=== PATIENT | male | born 1935 | race Caucasian/White ===

== ENCOUNTER → 2020-03-26 17:32 | Outpatient (CLI) | payer MEDICARE, OTHER, SELFPAY ==
--- NOTE | ~2020-03-26 | XR_ITS ---
EXAMINATION: XR lumbar spine 6V w bending EXAM DATE: 03/26/2020 18:12 INDICATION: Low back. Sciatica. TECHNIQUE: Lumber spine frontal, lateral, bilateral oblique projections. Coned down frontal and lat eral L5-S1 lumbar projections for interpretation. Additional lateral flexion and lateral extension p rojections obtained. There are no prior studies for comparison. FINDINGS: There is mild lumbar levoscoliosis. Moderate to severe loss of the L4-5 and L5-S1 disc heig hts, moderate at L1-2 and L2-3, mild to moderate at L3-4. There is 2-3 mm retrolisthesis L1 on L2, L2 on L3 and L3 on L4. Small lumbar endplate osteophytes. There is moderate to severe lower lumbar face t arthropathy, less at the thoracolumbar levels. There is moderate scattered abdominal aortic arterio sclerotic disease. Sacrum, sacroiliac joints, sacral arcuate lines are intact. There is no spondylol ysis. IMPRESSION: 1. Moderate to severe lower lumbar spondylosis. 2. Mild levoscoliosis. Reviewed, dictated and finalized at location A.
--- NOTE | ~2020-03-26 | XR_ITS ---
EXAMINATION: XR_[id number]_CR DATE: 03/26/2020 18:13 INDICATION: Pleurodynia. Left anterior inferior rib pain. TECHNIQUE: A frontal view of the chest and 3 views of the left ribs were obtained. COMPARISON: Chest 2 views 06/16/2016 FINDINGS: There is mild atelectasis in right lower lung zone and left mid and lower lung zones. No pl eural effusion or pneumothorax. The heart size is normal. There are surgical clips in left supraclavi cular region. There is a healing versus healed fracture of left fifth rib with callus. IMPRESSION: 1. Healing versus healed fracture of left fifth rib with callus. No acute rib fracture. 2. Mild atelectasis in right lower lung zone and left mid and lower lung zones. Reviewed, dictated and finalized at location A. IMPRESSION: 1. Healing versus healed fracture of left fifth rib with callus. No acute rib f racture. 2. Mild atelectasis in right lower lung zone and left mid and lower lung zones.
--- NOTE | ~2020-03-26 | XR_ITS ---
EXAMINATION: XR hip BI 2V w AP pelvis EXAM DATE: 03/26/2020 18:11 INDICATION: Sciatica. Low back pain. Left hip pain. TECHNIQUE: Each hip imaged independently (separate right and also left hip) crosstable lateral and ' frog-leg' and frontal projections for interpretation. Frontal projection pelvis. There is no prior study for comparison. FINDINGS: There is an intact right hip arthroplasty. There is moderate left hip primary osteoarthriti s, without evidence of avascular necrosis. There are no acute fractures or dislocations identified. There is no subcutaneous gas. Calcifications in the pelvis are believed to be phleboliths. Sacrum, sacroiliac joints, sacral arcuate lines are intact. Lower lumbar spondylosis. IMPRESSION: 1. Moderate left hip osteoarthritis. 2. Intact right hip arthroplasty. Reviewed, dictated and finalized at location A.
== END ==
PROVIDERS: PCP Internal Medicine; Visit Provider Internal Medicine
DX: M54.30 Sciatica, unspecified side (principal); M47.896 Other spondylosis, lumbar region; R91.8 Other nonspecific abnormal finding of lung field; M16.12 Unilateral primary osteoarthritis, left hip
CPT/HCPCS: 71101; 72114; 73521

== ENCOUNTER 2020-05-03 12:31 | Outpatient (CLI) | payer MEDICARE, OTHER, SELFPAY ==
--- NOTE | ~2020-05-03 | XR_ITS ---
EXAMINATION: XR lg joint inject/asp w image DATE: 05/03/2020 13:34 INDICATION: Unilateral primary osteoarthritis of the left hip TECHNIQUE: A time-out was performed to verify the patient's name, date of , and procedure to b e performed. The procedure including the risks, benefits, and alternatives was discussed with the pat ient. Risks discussed included bleeding and infection. The patient understood the risks and agreed to proceed. The skin overlying the left hip joint was prepped and draped in usual sterile fashion. An esthetic was administered with 1% lidocaine subcutaneously. A 22 G needle was advanced under fluoros copic guidance into the joint. Injection of 0.4 mL of Omnipaque 240 confirmed intra-articular positi on of the needle. Subsequently, injectate consisting of 7 mL of a 5:2 mixture of 1% lidocaine:10 mg/ mL Kenalog for a total dosage of 20 mg Kenalog was instilled. Washout of contrast was seen confirming intra-articular administration. The needle was removed and the entry site was cleaned and dressed. There were no immediate complications. Fluoroscopy exposure time was 0.1 minutes. The total number of images was 2. FINDINGS: Real-time fluoroscopy demonstrates the needle in the left hip joint. Patient's pain prior t o procedure:02/05. Patient's pain following the procedure: 08/08. IMPRESSION: 1. Left hip joint injection of local anesthetic and steroid with decrease in the patient's presenting pain. Reviewed, dictated and finalized at location A. MACHINE OPERATOR IMPRESSION: 1. Left hip joint injection of local anesthetic and steroid with decrease in th e patient's presenting pain.
== END 2020-05-03 12:32 | disposition home or self-care (01) ==
LOC: ANHIMG 12:34
PROVIDERS: PCP Internal Medicine; Visit Provider Orthopaedic Surgery
DX: M16.12 Unilateral primary osteoarthritis, left hip (principal)
CPT/HCPCS: 20610; 77002; J3301; Q9966

== ENCOUNTER 2022-06-04 10:48 | Outpatient (CLI) | payer MEDICARE, OTHER, SELFPAY ==
--- NOTE | ~2022-06-04 | NM_ITS ---
EXAMINATION: NM michael stress w perfusion DATE: 06/04/2022 12:53 INDICATION: Fatigue. Hyperlipidemia. TECHNIQUE: Rest images were obtained following intravenous administration of 9.8 mCi Tc99m tetrofosmi n (Myoview). The patient was infused intravenously with Lexiscan (Regadenoson). Then, 31.77 mCi Tc99m tetrofosmin (Myoview) was administered intravenously, and stress images were obtained. Data was blake nstructed into short axis and horizontal and vertical long axis SPECT images. Gated SPECT images were also obtained. COMPARISON: None. FINDINGS: There is an enlarged artifactual perfusion defect along a significant portion of the inferi or third of the heart on both the supine rest and stress images which largely reverses on the post st ress images obtained in prone position. The rotating source images suggests this may be due to elevat ion of the right hemidiaphragm. There is some residual mild decreased perfusion at the basilar inferi or septal, inferior and inferolateral segments equivocal for residual attenuation artifact versus inf arct. No perfusion defects on the post stress imaging reversible on the rest imaging to suggest ische [place]. There is normal left ventricular chamber size, wall motion and ejection fraction. Left ventricu lar ejection fraction measures 55%. IMPRESSION: 1. Large region of likely attenuation artifact along the inferior half of the heart on supine stress and rest images likely related to what appears to be an elevated right hemidiaphragm. There is largel y normalizes on post stress imaging performed in the prone position. Persistent decreased activity al rakesh the basilar inferolateral, inferior and inferolateral segments on prone imaging could represent r esidual attenuation artifact versus infarct. No evident reversible ischemia. 2. Left ventricular ejection fraction measuring 55%. Reviewed, dictated and finalized at location A. Y TRUCK TECHNICIAN IMPRESSION: 1. Large region of likely attenuation artifact along the inferior half of the h eart on supine stress and rest images likely related to what appears to be an e levated right hemidiaphragm. There is largely normalizes on post stress imaging performed in the prone position. Persistent decreased activity along the basil ar inferolateral, inferior and inferolateral segments on prone imaging could re present residual attenuation artifact versus infarct. No evident reversible isc hemia. 2. Left ventricular ejection fraction measuring 55%.
--- NOTE | 2022-06-04 11:05 | EST_ITS ---
Patient Info Name: Chris Bishop Age: 87 years : 1935 Gender: Male Ht: 69 in Wt: 205 lbs BSA: 2.15 m2 HR: 59 bpm BP: 145 / 97 mmHg Heart Rhythm: Sinus Rhythm Exam Date: 06/04/2022 11:45 AM Exam Location: [facility] Stress Patient Status: Outpatient Admit Date: 06/04/2022 Staff Ordering Physician: Krish Foley MD Attending Provider: Krish Foley MD Exercise Technologist: Celia Servin CT Exercise Physician: Song Patel DO Exam Type: CA stress michael w NM Study Info Indications I11.9 - Hypertensive heart disease without heart failure A regadenoson stress test was performed. Summary 1. 1. Negative lexiscan stress test for ischemic ST changes by ECG criteria. 2. 2. Baseline hypertension. 3. 3. Nuclear scan to follow and will be reported separately. Please correlate with it. 4. 4. Patient informed of the above results. Protocol: Lexiscan Stress ECG Details Stage: REST Duration (min): 0 min : 54 sec HR (bpm): 57 SBP (mmHg): 145 DBP (mmHg): 97 Stage: REST Duration (min): 7 min : 57 sec HR (bpm): 61 SBP (mmHg): 145 DBP (mmHg): 97 Stage: STAGE 1 Duration (min): 1 min : 0 sec HR (bpm): 66 SBP (mmHg): 166 DBP (mmHg): 106 Stage: RECOVERY Duration (min): 1 min : 0 sec HR (bpm): 75 SBP (mmHg): 166 DBP (mmHg): 106 Stage: RECOVERY Duration (min): 2 min : 0 sec HR (bpm): 71 SBP (mmHg): 166 DBP (mmHg): 106 Stage: RECOVERY Duration (min): 3 min : 0 sec HR (bpm): 71 SBP (mmHg): 166 DBP (mmHg): 106 Stage: RECOVERY Duration (min): 3 min : 11 sec HR (bpm): 68 SBP (mmHg): 174 DBP (mmHg): 105 Rest HR: 61 bpm Peak HR: 79 bpm Rest Sys BP: 145 mmHg Peak Sys BP: 174 mmHg Max Pred HR: 134 bpm % Max Pred HR: 59 % Target HR: 114 bpm Max RPP: 13,746 bpm*mmHg Termination Reason: Completed protocol Cardiac Symptoms: Shortness of breath Total Time: 1 min : 0 sec Rest Mabry BP: 97 mmHg Peak Mabry BP: 105 mmHg Total Dose: 0.4 mg Resting ECG Sinus rhythm, cannot r/o septal infarct, age indeterminate. Stress ECG No ST changes. Arrhythmias None. Report Signatures
== END 2022-06-04 10:49 | disposition home or self-care (01) ==
LOC: ANHCARD 10:51
PROVIDERS: PCP Family Medicine; Visit Provider Family Medicine
DX: R53.83 Other fatigue (principal); E78.5 Hyperlipidemia, unspecified; I11.9 Hypertensive heart disease without heart failure; I20.9 Angina pectoris, unspecified
CPT/HCPCS: 78452; 93017; A9502; J2785

== ENCOUNTER 2022-06-25 08:21 | Outpatient (CLI) | payer MEDICARE, OTHER, SELFPAY ==
--- NOTE | 2022-06-25 08:48 | ECHO_ITS ---
Patient Info Name: Chris Bishop Age: 87 years : 1935 Gender: Male Ht: 70 in Wt: 210 lbs BSA: 2.19 m2 HR: 59 bpm BP: 154 / 88 mmHg Technical Quality: Good Exam Date: 06/25/2022 9:13 AM Exam Location: [facility] Patient Status: Outpatient Admit Date: 06/25/2022 Staff Ordering Physician: oSng Patel DO Pilot Safety Inspector: Uma Rico RDCS Attending Provider: Song Patel DO Referring Physician: Jorge DINH; Exam Type: CA echo doppler color flow Study Info Indications R06.09 - Other forms of dyspnea Complete two-dimensional, color flow and Doppler transthoracic echocardiogram is performed. Summary 1. Complete two-dimensional, color flow and Doppler transthoracic echocardiogram is performed. 2. Left ventricular chamber dimension is normal. 3. Left ventricular systolic function is normal, estimated at 60-65%. 4. The left ventricular diastolic function is grade I diastolic dysfunction. 5. E/e' 8 is minimally elevated. 6. There is mild aortic valve sclerosis. 7. There is mild to moderate aortic valve regurgitation. 8. The mitral valve has mildly calcified annulus. 9. The aortic root size at the sinus of Valsalva is moderately dilated at 4.5 cm. 10. The prox ascending aorta size is mildly dilated at 4.3 cm. Left Ventricle E/e' 8 is minimally elevated. Left ventricular chamber dimension is normal. Left ventricular systolic function is normal, estimated at 60-65%. The left ventricular diastolic function is grade I diastolic dysfunction. Right Ventricle Right ventricular systolic function is normal and with normal TAPSE 2.2 cm. Right ventricular chamber dimension is normal. Left Atria Left atrial chamber dimension is normal. Right Atria Right atrial chamber dimension is normal. Aortic Valve The aortic valve is trileaflet. There is mild aortic valve sclerosis. There is no aortic valve stenosis. There is mild to moderate aortic valve regurgitation. Pulmonic Valve There is no pulmonic regurgitation. Mitral Valve The mitral valve has mildly calcified annulus. There is no mitral valve stenosis. There is no mitral valve regurgitation. Tricuspid Valve There is no tricuspid valve regurgitation. Pericardium/Pleural There is no pericardial effusion. Inferior Vena Cava Normal inferior vena cava with >50% collapse upon inspiration consistent with normal right atrial pressure, 5 mmHg. Aorta The aortic root size at the sinus of Valsalva is moderately dilated at 4.5 cm. The prox ascending aorta size is mildly dilated at 4.3 cm. Left Ventricular Outflow Tract Name Value Normal LVOT 2D LVOT Diameter 2.0 cm LVOT Doppler LVOT Peak Gradient 3 mmHg LVOT Mean Gradient 2 mmHg LVOT VTI 18 cm LVOT VTI/AV VTI Ratio 0.9 LVOT Stroke Volume 57 ml LVOT CO 3.8 l/min LVOT CI 1.7 l/min/m2 Mitral Valve
== END 2022-06-25 08:22 | disposition home or self-care (01) ==
LOC: ANHCARD 08:22
PROVIDERS: PCP Family Medicine; Visit Provider Internal Medicine Cardiovascular Disease
DX: R06.09 Other forms of dyspnea (principal); I35.1 Nonrheumatic aortic (valve) insufficiency
CPT/HCPCS: 93306

== ENCOUNTER 2022-09-08 11:51 | Outpatient (CLI) | payer MEDICARE, OTHER, SELFPAY ==
[2022-09-08 13:27] LABS: Basophils Percent Auto 0.4 % (0.2-1.2); Eosinophils Absolute Auto 0.3 K/mm3 (0-0.3); Eosinophils Percent Auto 3.4 % (0-4.4); Hematocrit 43.5 % (42.0-52.0); Hemoglobin 14.9 g/dL (14.0-18.0); Immature Granulocyte Absolute 0.02 K/mm3 (0.00-0.031); Immature Granulocyte Percent A 0.3 % (0-0.5); Immature Platelet Fraction Pct 3.3 % (0.9-11.2); Lymphocytes Absolute Auto 1.78 K/mm3 (0.9-3.2); Lymphocytes Percent Auto 24.1 % (18.3-44.2); Mean Corpuscular HGB Conc 34.3 g/dl (32-36); Mean Corpuscular Hemoglobin 34.9 pg (26-34); Mean Corpuscular Volume 101.9 fl (80-100); Mean Platelet Volume 11.1 fl (7.4-10.4); Monocytes Absolute Auto 0.6 K/mm3 (0.1-0.6); Neutrophils Absolute Auto 4.7 K/mm3 (1.3-6.7); Neutrophils Percent Auto 63.8 % (45.5-73.1); Platelet Count Result 101 k/mm3 (150-375); Red Blood Count 4.27 M/mm3 (4.6-6.20); Red Cell Distribution Width 13.2 % (11.5-14.5); White Blood Count 7.4 K/mm3 (4.5-10.0)
[2022-09-08 13:32] LABS: Urine Cotinine NEGATIVE
[2022-09-08 13:44] LABS: Anion Gap 5 mmol/L (8-16); Blood Urea Nitrogen 46 mg/dL (9-20); Calcium 9.1 mg/dL (8.4-10.2); Carbon Dioxide 31 mmol/L (22-30); Chloride 98 mmol/L (98-107); Estimated Glomerular Filt Rate 38; Glucose 99 mg/dL (65-110); Potassium 3.7 mmol/L (3.4-5.0); Sodium 134 mmol/L (137-145)
[2022-09-08 13:50] LABS: Albumin Level 4.7 g/dL (3.5-5.1)
[2022-09-08 14:30] LABS: Hemoglobin A1C 5.1 % (<5.7)
== END 2022-09-08 11:52 | disposition home or self-care (01) ==
LOC: ANHSURGERY 11:57
PROVIDERS: Anesthesiology; PCP Family Medicine; Visit Provider Orthopaedic Surgery
DX: M17.12 Unilateral primary osteoarthritis, left knee (principal); Z79.899 Other long term (current) drug therapy; Z01.818 Encounter for other preprocedural examination
CPT/HCPCS: 80048; 80307; 82040; 83036; 85025; 85055; 87081

== ENCOUNTER 2022-09-30 01:01 | Day surgery (SDC) | payer MEDICARE, OTHER, SELFPAY ==
--- NOTE | 2022-09-08 11:55 | PC.NURSE ---
PRE-OP INSTRUCTIONS, PLEASE READ CAREFULLY Report to the Outpatient Waiting Room, entrance under the green pavilion located off [facility], at time _0830_ on date _09/30/22_. Planned Procedure Time: _1030_. PACK A SMALL OVERNIGHT BAG AND LEAVE IN THE CAR ALONG WITH YOUR WALKER Time changes happen often and if your time is changed the preop area will call you the afternoon before. - You and your visitor will be asked to self-screen and do not enter if you have any COVID symptoms. - Only one visitor is requested with a max of two and NO children visitors are allowed at this time. - The patient visitor may be requested to leave or wait in car when not with patient due to distancing restrictions. - A mask is optional within the hospital at this time. -VISITING HOURS 8AM-8PM Patients may have clear liquids (water, carbonated beverages, clear teas, apple juice) until 3 hours prior to surgery (0730 AM) with a maximum of 20 ounces. - No food from midnight until time of surgery Take the following medications with a SIP of water the morning of surgery: _NEBIVOLOL (BYSTOLIC)_ DO NOT STOP ANY OF YOUR OTHER PRESCRIPTION MEDICATIONS PRIOR TO SURGERY ?EXCEPT THE FOLLOWING Medications to discontinue per DR. UMANA - _ASPIRIN 7 DAYS PRIOR TO SURGERY, Date to take last dose 09/22/22_ Medications to discontinue per ANESTHESIA - _VITAMINS AND SUPPLEMENTS 3 DAYS PRIOR TO SURGERY, Date to take last dose 09/26/22_ Please no make-up, nail bengali, hairspray, perfume, deodorant, or body powder the day of surgery. No jewelry (including any body piercings) or valuables the day of surgery, leave them at home. Please take a shower or bath the night before, or the morning of, surgery with an antibacterial soap. Wear comfortable, loose fitting clothing. - Jewelry must be removed prior to entering the operating room. Rings and piercings that are not removed may be cut off. - The hospital will not accept responsibility for valuables. - Please leave all valuables, including medications, at home the day of surgery. If you are going home after surgery, a licensed steam train driver must drive you home. - NO public transportation without another adult if you receive anesthesia. - We recommend that an adult stay with you for 24 hours following discharge. - We also recommend that you do not drive, make important decision, drink alcoholic beverages, or take any drugs that were not prescribed by your health care provider for at least 24 hours after your discharge time. Follow any additional instructions given to you from your surgeon. TOTAL JOINT CLASS 09/10/22 @ 10AM, [facility] ENTRANCE 2 - LOWER LEVEL If you or anyone in your household have experienced Covid symptoms in the past week, please notify your surgeon or the nurse liaison at the phone number below for possible testing. Instructions given to _PATIENT & SPOUSE_and asked if any additional questions and then verbalized understanding. Patient advised to call surgeon office or pre surgery nurse liaison [phone] if any additional questions.
[2022-09-08 12:24] VITALS: BP 116/54; PULSE 56; RESP 20; TEMP 36.6; O2SAT 97; BMI 31.4
[2022-09-30] VITALS (11 sets, daily range): BP systolic 112–151; BP diastolic 58–98; PULSE 56–92; RESP 13–18; TEMP 36–37.1; O2SAT 92–99
--- NOTE | ~2022-09-30 | XR_ITS ---
EXAMINATION: [id number] DATE: 09/30/2022 14:39 INDICATION: Left shoulder arthroplasty. Postop. TECHNIQUE: 2 views of left knee were obtained. COMPARISON: None. FINDINGS: There is a total left knee arthroplasty without patellar resurfacing in near-anatomic align ment. No fracture. There is gas in the knee joint and soft tissues, consistent with recent surgery. IMPRESSION: 1. Total left knee arthroplasty in near-anatomic alignment. Reviewed, dictated and finalized at location A.
--- NOTE | 2022-09-30 08:52 | WPDANESEPPF ---
Anes - Initial Pre Proc Eval Procedure: Operation Date: 09/30/22 10:30 Proposed Procedures p Left Total Knee Arthroplasty - Augusto Lowe MD Date/Time: 09/30/22 08:52 Surgeon: Augusto Lowe MD Pre Op Diagnosis: primary OA left knee Patient Data Age: 87 Gender: M Height: 1.73 m Weight: 93.7 kg Last Vital Signs Temp 36.6 C 09/08/22 12:24 Pulse 56 L 09/08/22 12:24 Resp 20 09/08/22 12:24 BP 116/54 L 09/08/22 12:24 Pulse Ox 97 09/08/22 12:24 O2 Del Method Room Air 09/08/22 12:24 Allergies Allergy/AdvReac Type Severity Reaction Status Date / Time iron Allergy Unknown unknown- Verified 09/15/22 14:20 A CHILD Home Medications Medication Instructions Recorded Confirmed Type folic acid-vit B6-vit B12 2.5 1 tablet PO DAILY #90 tabs 05/01/20 09/08/22 Rx mg-25 mg-1 mg tablet valsartan 160 0.5 tablet PO DAILY #45 tabs 07/30/20 09/08/22 Rx mg-hydrochlorothiazide 25 mg tablet (Diovan HCT) aspirin 81 mg tablet,delayed 81 mg PO DAILY 02/04/22 09/08/22 History release (Adult Low Dose Aspirin) allopurinol 300 mg tablet See Rx Instructions .Route 02/20/22 09/08/22 Rx .COMPLEX #90 tabs pantoprazole 40 mg tablet,delayed See Rx Instructions .Route 02/25/22 09/08/22 Rx release .COMPLEX #90 tabs ascorbate calcium (vitamin C) 500 500 mg PO DAILY 04/23/22 09/08/22 History mg tablet cholecalciferol (vitamin D3) 50 50 mcg PO DAILY 04/23/22 09/08/22 History mcg (2,000 unit) capsule niacin 1,000 mg tablet,extended See Rx Instructions .Route 04/23/22 09/08/22 Rx release 24 hr .COMPLEX #90 tabs vitamin E 600 unit capsule 600 unit PO DAILY 04/23/22 09/08/22 History celecoxib 200 mg capsule 200 mg PO DAILY #90 caps 05/01/22 09/08/22 Rx omega-3 acid ethyl esters 1 gram 2 cap PO BID #360 caps 05/14/22 09/08/22 Rx capsule (Lovaza) finasteride 5 mg tablet 5 mg PO DAILY 09/08/22 09/08/22 History glucosamine 750 fp-vezcesppwng-xuj 1 tablet PO DAILY 09/08/22 09/08/22 History no1 644 mg-C 30 mg-ruddy 1 mg tablet (Osteo Bi-Flex Triple Strength) lovastatin 40 mg tablet 40 mg PO DAILY #90 tabs 09/08/22 09/08/22 Rx mirabegron 25 mg tablet,extended 25 mg PO DAILY 09/08/22 09/08/22 History release 24 hr (Myrbetriq) nebivolol 10 mg tablet (Bystolic) 10 mg PO DAILY #90 tabs 09/08/22 09/08/22 Rx perindopril erbumine 4 mg tablet 4 mg PO DAILY #90 tabs 09/08/22 09/08/22 Rx Other studies: Exam Date: ? ? 06/25/2022 9:13 AM Exam Location: ? ? [facility] Patient Status: ? ? Outpatient Admit Date: ? ? 06/25/2022 Staff Ordering Physician: ? ? Song Patel. DO Utility Porter: ? ? Uma Rico RDCS Attending Provider: ? ? Song Patel. DO Referring Physician: ? ? Jorge DINH; Exam Type: ? ? CA echo doppler color flow Study Info Indications ? ? R06.09 - Other forms of dyspnea Complete two-dimensional, color flow and Doppler transthoracic echocardiogram is performed. Account #: ? ? [id number] Summary ? 1. Complete two-dimensional, color flow and Doppler transthoracic echocardiogram is performed. ? 2. Left ventricular chamber dimension is normal. ? 3. Left ventricular systolic function is normal, estimated at 60-65%. ? 4. The left ventricular diastolic function is grade I diastolic dysfunction. ? 5. E/e' 8 is minimally elevated. ? 6. There is mild aortic valve sclerosis. ? 7. There is mild to moderate aortic valve regurgitation. ? 8. The mitral valve has mildly calcified annulus. ? 9. The aortic root size at the sinus of Valsalva is moderately dilated at 4.5 cm. ? 10. The prox ascending aorta size is mildly dilated at 4.3 cm. Echo/MUGA:: 12/28/22 Echo: EF 60-65%, grade I diastolic dysfunction (E/e' 8), mild-mod AI, aortic root 4.5 cm and asc aorta 4.3 cm. Electrophysiology:: 06/09/22 EKG: Sinus rhythm, borderline AV conduction delay, LAFB. 08/01/20 EKG: Sinus rhythm, LAFB. Stress Tests:: 06/04/22 Lexiscan myoview: Possible inferolateral inf
[2022-09-30] MEDS: ACETAMINOPHEN 500 MG TABLET 1000 MG PO (09:15)
[2022-09-30] MEDS: LACTATED RINGERS 1,000 ML 30 ML IV CONT ×2 (09:44→14:26)
[2022-09-30] MEDS: TRANEXAMIC ACID 1,000MG/ISO100 1,000 MG/100 ML BAG 200 MG IVPB (09:44)
--- NOTE | 2022-09-30 11:19 | WPDHPUPDATE1 ---
History and Physical Update Update Date/Time: 09/30/22 11:19 History and Physical has been reviewed, including an updated exam of the patient. There are NO changes in the patient's condition. Risks, benefits, and alternatives have been discussed and questions answered. Patient agrees to proceed with procedure.
--- NOTE | 2022-09-30 12:02 | WPDANESPNB ---
Anes - Peripheral Nerve Block Date/Time: 09/30/22 12:02 I have discussed with the patient/family/POA the placement of a peripheral nerve block for post-operative pain management, including associated risks, benefits, complications, and side effects. Alternative methods of post-operative analgesia were detailed. Questions were solicited and answers provided to the satisfaction of the patient/family/POA. Time-Out: A pre-procedural Time-Out was completed immediately before starting the procedure and confirmed: Patient Identification, Site, Procedure, Patient Position and the Availability of Requisite Equipment. Clinical Indications: Acute post-operative pain management requested by the operative surgeon. Nerve Block Insertion Note Anes-nerve block: adductor canal left Patient position: supine Skin prep: chlorhexidine Needle: 22 gauge, stimulating, insulated echogenic needle. Needle length: 80 mm Technique: ultrasound Technique comment: in plane Injectate: bupivacaine 0.25% with epi 5 mcg/ml (30cc) Observations: tolerated well Complications: none Procedure start time:: 1150 Procedure end time:: 1155
[2022-09-30] MEDS: ceFAZolin 2 GM/D5W 50 ML 2 GM/50 ML BAG IVPB ×2 (12:21→20:35)
[2022-09-30] MEDS: GENTAMICIN BONE CEMENT REFOBACIN 1 EACH TOPICAL (13:10)
--- NOTE | 2022-09-30 15:53 | ADMGEN ---
This patient, Chris Bishop, was admitted to Medical Room 250-01. Patient/family oriented to hospital policies and general routines including ID bracelet, bed and alarms, visiting hours, pain management, procedures, bathroom and other care routines, personal items, smoking policy, room service/diet, and visiting hours. Information on how to activate the Rapid Response Team has been discussed. Patient/Family are encouraged to report perceived risks to care and to ask questions if they do not understand what they are told or what they should do.
--- NOTE | 2022-09-30 16:03 | W.PM.PROC2 ---
Procedure Note - Detailed Date of Procedure 09/30/22 Pre-op Diagnosis primary OA left knee Post-op Diagnosis Same Procedure Performed Total knee arthroplasty, left Surgeon Augusto Lowe MD Anesthesia General and Regional (subsartorial block) Findings Satisfactory bone quality. Mild medial release. Popliteal release. Description of Procedure The patient was brought to the operating room. A general anesthetic was administered. The leg was prepped and draped in the usual sterile fashion. The limb was elevated and the tourniquet inflated to 300 mmHg. A longitudinal incision was created along the medial border of the patella and patellar tendon, and a trivector approach to the knee was performed. A mild medial release was taken. The knee was then flexed. The osteophytes were carefully removed. The intramedullary guide was placed in the femoral canal. The distal femoral resection was then taken with the oscillating saw. The collateral ligaments were carefully protected. The tibia was carefully exposed. The jig was applied, and the proximal tibia was resected according to preoperative plan. The knee was balanced in extension. Appropriate releases were taken where needed. The anterior cruciate ligament and meniscal remnants were removed. The posterior cruciate ligament was preserved. The patella was denervated, and peripatellar osteophytes removed. The femur was sized and rotation assessed using a combination of gap balancing, posterior referencing, and the AP axis. The 4 in 1 cutting block was used to finish the femoral cuts after equal gaps were assured. The osteophytes were carefully removed from the back of the knee. The knee was copiously irrigated with antibiotic solution periodically throughout the procedure. The meniscal remnants were removed. The spacer block was used to confirm equal flexion and extension gaps. No further releases were needed. The tibia was sized and broached. The bony surfaces were prepared for cementing with pulsatile lavage. The real tibia was cemented into position. The femur was press-fit. Excess cement was carefully removed. Patellar tracking was carefully assessed. Slight PCL release performed. Dilute sterile Betadine soak performed for three minutes. Copious irrigation then performed. The wound was closed with #1 Vicryl suture, #2, 2-0, and 3-0 barbed suture, followed by Steri-Strips. A sterile bulky dressing was applied. Meticulous hemostasis was maintained throughout the procedure, and the bipolar cautery device was used. The pain relieving mixture was injected into the periarticular tissues during the procedure. There were no complications. The patient was extubated and brought to the recovery room in stable condition after the application of sterile dressing with Jose bandage. Implants [place] Triathlon knee system, low profile cemented tibia size 6, press-fit cruciate retaining femoral component size 5 ,and an 9 mm cruciate retaining polyethylene insert. Estimated Blood Loss -50.0 Drains No Pathology None sent Complications No immediate complications Condition Stable Disposition PACU [facility] Billing Surgery - Charge Forward: Surgery Billing
[2022-09-30] MEDS: ASPIRIN 81 MG ENTERIC TABLET PO (17:26)
[2022-09-30] MEDS: allopurinoL 300 MG TABLET PO (17:26)
[2022-09-30] MEDS: PANTOPRAZOLE 40 MG TABLET PO (17:26)
[2022-09-30] MEDS: ONDANSETRON INJ 4 MG/2 ML VIAL IV PUSH (20:28)
[2022-09-30] MEDS: NIACIN SA 500 MG TABLET 1000 MG PO (20:40)
--- NOTE | 2022-09-30 21:55 | PM.IMCN ---
Assessment and Plan Assessment and plan (1) S/P total knee arthroplasty: Code(s): Z96.659 - Presence of unspecified artificial knee joint Status: Acute Assessment and Plan: Postop care per Dr. Lowe PT OT per ortho DVT prophylaxis per Dr. Lowe Pain management per Ortho (2) Mixed hyperlipidemia: Code(s): E78.2 - Mixed hyperlipidemia Status: Acute Assessment and Plan: His omega-3 is on hold. His lovastatin and niacin have been continued. (3) Hypertension: Code(s): I10 - Essential (primary) hypertension Status: Acute Assessment and Plan: His Diovan HCT has been continued. His perindopril has been continued. His Bystolic has been continued (4) BPH (benign prostatic hyperplasia): Code(s): N40.0 - Benign prostatic hyperplasia without lower urinary tract symptoms Status: Acute Assessment and Plan: His finasteride has been continued. Plan Thank you for this consultation this 87-year-old male patient. We will continue to comanage alongside you. In the event that he have any questions or concerns please feel free to reach out to the hospitalist group. HPI Data of Consult Consult date: 09/30/22 Requesting Physician: Augusto Lowe MD Primary Care Provider: Krish Foley MD Consult Narrative Narrative: Chris Bishop is a 87 year old male who has complaints of severe bilateral knee pain. The left is worse than the right. 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 The patient was having worse pain with standing and walking. The patient uses a cane and stating give him some relief. The patient stated he was quite athletic and rode motorcycles when he was younger. The patient cannot walk more than a block and now due to the discomfort. The discomfort has affected his quality of life. The patient underwent a total left knee arthroplasty per Dr. Jane person today. Please see operative report. Patient had general and regional anesthesia. The patient has no complaints at this time. When I assessed the patient was sitting up in the chair with his feet on a stool. The patient was admitted to orthopedic physician and the hospitalist group was consulted today on the date of service of 09/30/2022. Review of Systems Review of Systems: All systems reviewed & are unremarkable except as noted in HPI and below Constitutional: Constitutional: Reports as per HPI and Reports no additional constitutional complaints Eyes: Eyes: Reports as per HPI and Reports no additional eye complaints ENT: Reports system reviewed and no additional complaints, except as documented and Reports Normal hearing present Cardiovascular: Cardiovascular: Reports no additional cardiovascular complaints Respiratory: Respiratory: Reports no additional respiratory complaints and Reports no additional respiratory complaints Gastrointestinal: Gastrointestinal: Reports as per HPI and Reports no additional gastrointestinal complaints Musculoskeletal: Musculoskeletal: Reports no additional musculoskeletal complaints Integumentary/Breasts: Skin/Breast: Reports system reviewed and no additional complaints, except as docu and Reports as per HPI Neurologic: Reports system reviewed and no additional complaints, except as documented, Reports as per HPI and Reports Normal hearing present Psychiatric: Psychiatric: Reports no additional psychiatric complaints and Reports as per HPI Endocrine: Endocrine: Reports no additional endocrine complaints Hematologic/Lymphatic: Hematologic/Lymphatic: Reports no additional hematologic/lymphatic complaints Allergic/Immunologic: Allergic/Immunologic: Reports no additional allergic/immunologic complaints PMFSH Past Medical History Medical History (Updated 09/30/22 @ 22:11 by Fela Noel NP) Arthritis Arthritis, 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
[2022-10-01 01:17] VITALS: BP 112/61; PULSE 64; RESP 16; TEMP 36.6; O2SAT 93
[2022-10-01] MEDS: traMADol HCL (*CRX) 50 MG TABLET PO (03:18)
[2022-10-01] MEDS: ceFAZolin 2 GM/D5W 50 ML 2 GM/50 ML BAG IVPB ×2 (03:55→11:06)
[2022-10-01 06:08] LABS: Basophils Percent Auto 0.4 % (0.2-1.2); Eosinophils Absolute Auto 0.1 K/mm3 (0-0.3); Eosinophils Percent Auto 2.4 % (0-4.4); Hematocrit 33.7 % (42.0-52.0); Hemoglobin 11.4 g/dL (14.0-18.0); Immature Granulocyte Absolute 0.01 K/mm3 (0.00-0.031); Immature Granulocyte Percent A 0.2 % (0-0.5); Lymphocytes Absolute Auto 0.87 K/mm3 (0.9-3.2); Lymphocytes Percent Auto 17.5 % (18.3-44.2); Mean Corpuscular HGB Conc 33.8 g/dl (32-36); Mean Corpuscular Hemoglobin 35.2 pg (26-34); Mean Platelet Volume 9.4 fl (7.4-10.4); Monocytes Absolute Auto 0.4 K/mm3 (0.1-0.6); Monocytes Percent Auto 7.2 % (2.6-8.5); Neutrophils Absolute Auto 3.6 K/mm3 (1.3-6.7); Neutrophils Percent Auto 72.3 % (45.5-73.1); Platelet Count Result 68 k/mm3 (150-375); Red Blood Count 3.24 M/mm3 (4.6-6.20)
[2022-10-01 06:23] LABS: Anion Gap 4 mmol/L (8-16); Blood Urea Nitrogen 23 mg/dL (9-20); Calcium 8.2 mg/dL (8.4-10.2); Carbon Dioxide 28 mmol/L (22-30); Chloride 105 mmol/L (98-107); Estimated CRCL calculation 48 ml/min; Estimated Glomerular Filt Rate > 60; Glucose 104 mg/dL (65-110); Potassium 3.5 mmol/L (3.4-5.0); Sodium 137 mmol/L (137-145)
[2022-10-01 06:45] VITALS: BP 115/55; PULSE 62; RESP 16; TEMP 36.6; O2SAT 98
--- NOTE | 2022-10-01 07:59 | WPDANESPN ---
Anes - Prog Note Post-Op Date/Time: 10/01/22 07:59 Cardiovascular status: normal Respiratory status: normal Airway patency: baseline Mental status: baseline Post-Op hydration status: normal Vital Signs: Last Vital Signs Temp 36.6 C 10/01/22 06:45 Pulse 62 10/01/22 06:45 Resp 16 10/01/22 06:45 BP 115/55 L 10/01/22 06:45 Pulse Ox 98 10/01/22 06:45 O2 Del Method Nasal Cannula 09/30/22 15:35 O2 Flow Rate 2 09/30/22 15:35 Pain Score (VAS): 0 I/O: Intake & Output 09/30/22 09/30/22 10/01/22 15:59 23:59 07:59 Intake Total 400 390 500 Output Total 200 300 Balance 400 190 200 Laboratory Tests 10/01/22 05:50 10/01/22 05:50 09/30/22 10/01/22 10/01/22 08:57 05:50 05:50 WBC 5.0 RBC 3.24 L Hgb 11.4 L D Hct 33.7 L MCV 104.0 H MCH 35.2 H MCHC 33.8 RDW 13.0 Plt Count 68 L MPV 9.4 Immature Gran % (Auto) 0.2 Neut % (Auto) 72.3 Lymph % (Auto) 17.5 L [place] % (Auto) 7.2 Eos % (Auto) 2.4 Baso % (Auto) 0.4 Lymph # (Auto) 0.87 L [place] # (Auto) 0.4 Eos # (Auto) 0.1 Baso # (Auto) 0.0 Abs Immat Gran (auto) 0.01 Absolute Neuts (auto) 3.6 Absolute Nucleated RBC 0.0 Nucleated RBC % 0.0 % Immature Plt Fraction 3.0 Sodium 137 Potassium 3.5 Chloride 105 Carbon Dioxide 28 Anion Gap 4 L BUN 23 H D Creatinine 1.10 Estim Creat Clear Calc 48 Estimated GFR > 60 Glucose 104 Calcium 8.2 L Blood Type A Positive Antibody Screen Negative Post-procedural complaints: none Patient Feedback: Patient satisfied with anesthetic care.
[2022-10-01 08:06] VITALS: PULSE 64
[2022-10-01] MEDS: NEBIVOLOL HCL 5 MG TABLET 10 MG PO (08:06)
[2022-10-01] MEDS: MIRABEGRON 25 MG ER TABLET PO (08:07)
[2022-10-01] MEDS: SENNA/DOCUSATE SODIUM TABLET 2 TAB PO (08:07)
[2022-10-01] MEDS: lisinopriL 10 MG TABLET PO (08:08)
[2022-10-01] MEDS: CELECOXIB 200 MG CAPSULE PO (08:08)
[2022-10-01] MEDS: FINASTERIDE 5 MG TABLET PO (08:08)
[2022-10-01] MEDS: LOVASTATIN 20 MG TABLET 40 MG PO (08:08)
[2022-10-01] MEDS: allopurinoL 300 MG TABLET PO (08:08)
[2022-10-01] MEDS: ASPIRIN 81 MG ENTERIC TABLET PO (08:08)
[2022-10-01] MEDS: PANTOPRAZOLE 40 MG TABLET PO (08:08)
[2022-10-01 08:16] VITALS: BP 129/66
--- NOTE | 2022-10-01 08:42 | PM.DS ---
DS: Admitting Diagnosis Discharge Date 10/01/22 Admitting Diagnosis OA knee Left DS: Discharge Diagnosis Discharge Diagnosis (1) Status post total left knee replacement: Code(s): Z96.652 - Presence of left artificial knee joint Status: Acute Assessment and Plan: Postop day 1: Left total knee arthroplasty. Patient tolerated procedure well. No complications. Pain manageable with pain medication. No numbness or tingling. We had a lengthy discussion regarding postoperative wound care, limitations, expectations, and exercises. Patient shows good understanding. He has had initial physical therapy and is tolerating it well. DVT prophylaxis: 81 mg baby aspirin b.i.d. for 14 days. Pain medication: Percocet. Celebrex. Prednisone. Patient has followup appointment with Dr. Lowe in 3 weeks. DS: Summary Hospital Course Reason for hospitalization: Total knee arthroplasty Hospital Course: Patient tolerated procedure well. Has had initial PT/OT. Status at Discharge Functional status at discharge: uses cane/walker Overall status at discharge: patient is progressing back to baseline Time Spent with Patient Time attestation: Total time spent providing and/or coordinating discharge services: Exam Narrative: Elderly 87-year-old overweight male. Resting comfortably in chair. Alert and oriented x3. No acute distress. Wearing compression socks bilaterally. Dressing intact without drainage. Mild swelling. Minimal ecchymosis. No erythema. No hematoma. Range of motion limited due to pain. Calf nontender. Good quad function. Neurologic status intact. No varicosities. Distal pulses palpable. DS: Data Data Completed and Pending Labs on day of discharge: Labs from last 24 hours 10/01/22 10/01/22 09/30/22 05:50 05:50 08:57 WBC 5.0 RBC 3.24 L Hgb 11.4 L D Hct 33.7 L MCV 104.0 H MCH 35.2 H MCHC 33.8 RDW 13.0 Plt Count 68 L MPV 9.4 Immature Gran % (Auto) 0.2 Neut % (Auto) 72.3 Lymph % (Auto) 17.5 L [place] % (Auto) 7.2 Eos % (Auto) 2.4 Baso % (Auto) 0.4 Lymph # (Auto) 0.87 L [place] # (Auto) 0.4 Eos # (Auto) 0.1 Baso # (Auto) 0.0 Abs Immat Gran (auto) 0.01 Absolute Neuts (auto) 3.6 Absolute Nucleated RBC 0.0 Nucleated RBC % 0.0 % Immature Plt Fraction 3.0 Sodium 137 Potassium 3.5 Chloride 105 Carbon Dioxide 28 Anion Gap 4 L BUN 23 H D Creatinine 1.10 Estim Creat Clear Calc 48 Estimated GFR > 60 Glucose 104 Calcium 8.2 L Blood Type A Positive Antibody Screen Negative Discharge Plan Discharge Patient Disposition: Home, Self-Care Discharge Instructions: See green instruction sheets Patient Instructions: Pain Management (DC), Knee Arthroscopy (DC) Follow-up/Referrals: Emily Hines PA [Physician Straight Tooth Gear Generator Operator] - Discharge Medications: New prednisone 5 mg tablet 5 mg PO DAILY 21 Days Qty: 21 0RF aspirin 81 mg tablet,delayed release (DR/EC) 81 mg PO BID 14 Days Qty: 28 0RF oxycodone-acetaminophen 5-325 mg tablet 1 - 2 tablet PO Q4-6H MDD 6 PRN (Reason: pain) Qty: 30 0RF Continued aspirin [Adult Low Dose Aspirin] 81 mg tablet,delayed release (DR/EC) 81 mg PO DAILY ascorbate calcium (vitamin C) 500 mg tablet 500 mg PO DAILY cholecalciferol (vitamin D3) 50 mcg (2,000 unit) capsule 50 mcg PO DAILY vitamin E 600 unit capsule 600 unit PO DAILY niacin 1,000 mg tablet extended release 24 hr See Rx Instructions .ROUTE .COMPLEX Qty: 90 3RF Dose Instruction: TAKE 1 TABLET BY MOUTH AT BEDTIME Rx Instructions: TAKE 1 TABLET BY MOUTH AT BEDTIME finasteride 5 mg Tablet 5 mg PO DAILY Myrbetriq 25 mg Tablet Extended Release 24 Hr 25 mg PO DAILY Osteo Bi-Flex Triple Strength 750 mg-644 mg- 30 mg-1 mg Tablet 1 tablet PO DAILY folic acid-vit B6-vit B12 2.5-25-1 mg tablet
[2022-10-01] MEDS: VALSARTAN 80 MG TABLET PO (09:16)
[2022-10-01] MEDS: polyethylene glycoL 3350 17 GM POWD.PACK PO (09:16)
[2022-10-01] MEDS: hydroCHLOROthiazide 12.5 MG CAPSULE PO (09:16)
[2022-10-01 09:21] VITALS: BP 128/64; PULSE 63; RESP 17; TEMP 36.5; O2SAT 97
--- NOTE | 2022-10-01 11:24 | PM.IMPN ---
Progress Note: A&P Assessment and Plan (1) S/P total knee arthroplasty: Code(s): Z96.659 - Presence of unspecified artificial knee joint Status: Acute Assessment and Plan: Postop care per Dr. Lowe PT OT per ortho DVT prophylaxis per Dr. Lowe Pain management per Ortho 10/01/2022 interval history: 87 y/o male s/p total left knee arthroplasty POD#1 patient states is feeling better the pain persists but able to tolerate and able to participate in PT, patient is seen by orthopedic surgeon and patient in is ready to be discharged, patient remains clinically stable he has no complains chest pain shortness of breath or dizziness. (2) Mixed hyperlipidemia: Code(s): E78.2 - Mixed hyperlipidemia Status: Acute Assessment and Plan: His omega-3 is on hold. His lovastatin and niacin have been continued. (3) Hypertension: Code(s): I10 - Essential (primary) hypertension Status: Acute Assessment and Plan: His Diovan HCT has been continued. His perindopril has been continued. His Bystolic has been continued (4) BPH (benign prostatic hyperplasia): Code(s): N40.0 - Benign prostatic hyperplasia without lower urinary tract symptoms Status: Acute Assessment and Plan: His finasteride has been continued. Plan Thank you for this consultation this 87-year-old male patient. We will continue to comanage alongside you. In the event that he have any questions or concerns please feel free to reach out to the hospitalist group. Subjective Date/time seen: 10/01/22 11:24 10/01/2022 interval history: 87 y/o male s/p total left knee arthroplasty POD#1 patient states is feeling better the pain persists but able to tolerate and able to participate in PT, patient is seen by orthopedic surgeon and patient in is ready to be discharged, patient remains clinically stable he has no complains chest pain shortness of breath or dizziness. Review of Systems Review of Systems: All systems reviewed & are unremarkable except as noted in HPI and below Constitutional: Constitutional: Reports as per HPI Exam Narrative: Patient is comfortable, NAD HEENT: eyes are clear and none icteric LUNGS: Normal respiratory effort ABD: Distended Lower extremities: no edema SKIN: nonjaundiced Neuro: grossly intact. Objective Data Vital Signs Vital Signs: Vital Signs - 24 hr 09/30/22 14:26 09/30/22 14:40 09/30/22 14:55 Temperature 98.7 F Pulse Rate 92 76 76 Respiratory Rate 13 14 18 Blood Pressure 151/69 H 127/80 129/69 Pulse Oximetry 98 98 95 Oxygen Delivery Simple Face Mask Simple Face Mask Simple Face Mask Oxygen Flow Rate 6 6 2 09/30/22 15:10 09/30/22 15:25 09/30/22 15:35 Temperature Pulse Rate 73 73 72 Respiratory Rate 14 14 16 Blood Pressure 136/66 126/68 132/65 Pulse Oximetry 95 94 95 Oxygen Delivery Nasal Cannula Nasal Cannula Nasal Cannula Oxygen Flow Rate 2 2 2 09/30/22 16:00 09/30/22 16:21 09/30/22 17:21 Temperature 96.8 F L 98.7 F 98.6 F Pulse Rate 72 73 74 Respiratory Rate 16 18 18 Blood Pressure 123/58 L 137/63 138/72 Pulse Oximetry 95 99 99 Oxygen Delivery Oxygen Flow Rate 09/30/22 21:50 10/01/22 01:17 10/01/22 06:45 Temperature 97.8 F 97.8 F 97.8 F Pulse Rate 64 64 62 Respiratory Rate 16 16 16 Blood Pressure 112/60 112/61 115/55 L Pulse Oximetry 92 93 98 Oxygen Delivery Oxygen Flow Rate 10/01/22 08:06 10/01/22 08:16 10/01/22 08:24 Temperature Pulse Rate 64 Respiratory Rate Blood Pressure 129/66 Pulse Oximetry Oxygen Delivery Room Air Oxygen Flow Rate 10/01/22 09:21 Temperature 97.7 F Pulse Rate 63 Respiratory Rate 17 Blood Pressure 128/64 Pulse Oximetry 97 Oxygen Delivery Oxygen Flow Rate Intake/Output Intake/Output: Intake & Output 09/28/22 09/29/22 09/30/22 10/01/22 23:59 23:59 23:59 23:59 Intake Total 790 550 Output Total 200 300 Balance 590 250 Meds/Resul
== END 2022-10-01 12:50 | disposition home or self-care (01) ==
LOC: ANHSURGERY 07:58 → ANH2MED 15:40
PROVIDERS: Physician Assistant Surgical; PCP Family Medicine; Visit Provider Orthopaedic Surgery
PROC: (CPT 27447; principal; 2022-09-30 10:30)
DX: M17.12 Unilateral primary osteoarthritis, left knee (principal); G89.18 Other acute postprocedural pain; R06.09 Other forms of dyspnea; I35.1 Nonrheumatic aortic (valve) insufficiency; I35.8 Other nonrheumatic aortic valve disorders; I34.81 Nonrheumatic mitral (valve) annulus calcification; I77.810 Thoracic aortic ectasia; I25.810 Atherosclerosis of coronary artery bypass graft(s) without angina pectoris; N40.0 Benign prostatic hyperplasia without lower urinary tract symptoms; K21.9 Gastro-esophageal reflux disease without esophagitis; I11.9 Hypertensive heart disease without heart failure; M10.09 Idiopathic gout, multiple sites; E78.2 Mixed hyperlipidemia; Z85.72 Personal history of non-Hodgkin lymphomas; Z79.82 Long term (current) use of aspirin; Z87.891 Personal history of nicotine dependence; E66.9 Obesity, unspecified; Z68.31 Body mass index [BMI] 31.0-31.9, adult
CPT/HCPCS: 27447; 64447; 36415; 73560; 80048; 85025; 85055; 86850; 86900; 86901; 97110; 97161; 97165; A9270; C1713; C1776; J0131; J0171; J0690; J1885; J2270; J2405; J2704; J2795; J3010; J7120

== ENCOUNTER 2022-11-19 13:56 | Outpatient (CLI) | payer MEDICARE, OTHER, SELFPAY ==
[2022-11-19 14:37] LABS: Hematocrit 37.9 % (42.0-52.0); Hemoglobin 13.2 g/dL (14.0-18.0)
[2022-11-19 14:44] LABS: Albumin Level 4.2 g/dL (3.5-5.1); Estimated Glomerular Filt Rate > 60; Glucose 92 mg/dL (65-110)
== END 2022-11-19 13:57 | disposition home or self-care (01) ==
LOC: ANHLAB 14:01
PROVIDERS: PCP Family Medicine; Visit Provider Orthopaedic Surgery
DX: E78.2 Mixed hyperlipidemia (principal); I11.9 Hypertensive heart disease without heart failure; K21.9 Gastro-esophageal reflux disease without esophagitis; M17.11 Unilateral primary osteoarthritis, right knee; M10.09 Idiopathic gout, multiple sites; I25.810 Atherosclerosis of coronary artery bypass graft(s) without angina pectoris
CPT/HCPCS: 36415; 82040; 82565; 82947; 85014; 85018

== ENCOUNTER 2022-12-31 11:31 | Outpatient (CLI) | payer MEDICARE, OTHER, SELFPAY ==
[2022-12-31 12:02] LABS: Basophils Percent Auto 0.4 % (0.2-1.2); Eosinophils Absolute Auto 0.2 K/mm3 (0-0.3); Eosinophils Percent Auto 4.4 % (0-4.4); Hematocrit 38.2 % (42.0-52.0); Hemoglobin 13.3 g/dL (14.0-18.0); Immature Granulocyte Absolute 0.01 K/mm3 (0.00-0.031); Immature Granulocyte Percent A 0.2 % (0-0.5); Immature Platelet Fraction Pct 2.9 % (0.9-11.2); Lymphocytes Absolute Auto 1.73 K/mm3 (0.9-3.2); Mean Corpuscular HGB Conc 34.8 g/dl (32-36); Mean Corpuscular Hemoglobin 36.1 pg (26-34); Mean Corpuscular Volume 103.8 fl (80-100); Mean Platelet Volume 10.5 fl (7.4-10.4); Monocytes Absolute Auto 0.5 K/mm3 (0.1-0.6); Monocytes Percent Auto 9.8 % (2.6-8.5); Neutrophils Absolute Auto 2.4 K/mm3 (1.3-6.7); Neutrophils Percent Auto 49.2 % (45.5-73.1); Platelet Count Result 81 k/mm3 (150-375); Red Blood Count 3.68 M/mm3 (4.6-6.20); Red Cell Distribution Width 12.6 % (11.5-14.5); White Blood Count 4.8 K/mm3 (4.5-10.0)
[2022-12-31 12:12] LABS: Anion Gap 4 mmol/L (8-16); Blood Urea Nitrogen 30 mg/dL (9-20); Calcium 9.3 mg/dL (8.4-10.2); Carbon Dioxide 30 mmol/L (22-30); Chloride 107 mmol/L (98-107); Estimated Glomerular Filt Rate > 60; Glucose 94 mg/dL (65-110); Potassium 4.2 mmol/L (3.4-5.0); Sodium 141 mmol/L (137-145)
[2022-12-31 12:13] LABS: Urine Cotinine NEGATIVE
[2022-12-31 12:19] LABS: Hemoglobin A1C 5.1 % (<5.7)
[2022-12-31 12:47] LABS: Platelet Estimate Decreased (Adequate); Schistocytes None Seen (NORMAL)
== END 2022-12-31 11:32 | disposition home or self-care (01) ==
PROVIDERS: Anesthesiology; PCP Family Medicine; Visit Provider Orthopaedic Surgery
DX: M17.11 Unilateral primary osteoarthritis, right knee (principal); I10 Essential (primary) hypertension; Z01.818 Encounter for other preprocedural examination
CPT/HCPCS: 36415; 80048; 80307; 83036; 85025; 85055; 86850; 86900; 86901; 87081

== ENCOUNTER 2023-03-03 11:22 | Outpatient (CLI) | payer MEDICARE, OTHER, SELFPAY ==
[2023-03-03 11:51] LABS: Basophils Percent Auto 0.6 % (0.2-1.2); Eosinophils Absolute Auto 0.2 K/mm3 (0-0.3); Eosinophils Percent Auto 3.7 % (0-4.4); Hematocrit 38.7 % (42.0-52.0); Hemoglobin 13.2 g/dL (14.0-18.0); Immature Granulocyte Absolute 0.02 K/mm3 (0.00-0.031); Immature Granulocyte Percent A 0.4 % (0-0.5); Immature Platelet Fraction Pct 3.1 % (0.9-11.2); Lymphocytes Absolute Auto 1.59 K/mm3 (0.9-3.2); Lymphocytes Percent Auto 32.3 % (18.3-44.2); Mean Corpuscular HGB Conc 34.1 g/dl (32-36); Mean Corpuscular Hemoglobin 35.6 pg (26-34); Mean Corpuscular Volume 104.3 fl (80-100); Mean Platelet Volume 10.3 fl (7.4-10.4); Monocytes Absolute Auto 0.3 K/mm3 (0.1-0.6); Monocytes Percent Auto 6.5 % (2.6-8.5); Neutrophils Absolute Auto 2.8 K/mm3 (1.3-6.7); Neutrophils Percent Auto 56.5 % (45.5-73.1); Platelet Count Result 78 k/mm3 (150-375); Red Blood Count 3.71 M/mm3 (4.6-6.20); Red Cell Distribution Width 12.7 % (11.5-14.5); White Blood Count 4.9 K/mm3 (4.5-10.0)
[2023-03-03 12:12] LABS: Albumin Level 4.3 g/dL (3.5-5.1)
[2023-03-03 12:14] LABS: Blood Urea Nitrogen 32 mg/dL (9-20); Calcium 9.4 mg/dL (8.4-10.2); Estimated Glomerular Filt Rate 57; Glucose 104 mg/dL (65-110)
[2023-03-03 12:25] LABS: Anion Gap 4 mmol/L (8-16); Carbon Dioxide 28 mmol/L (22-30); Chloride 108 mmol/L (98-107); Potassium 4.3 mmol/L (3.4-5.0); Sodium 140 mmol/L (137-145)
[2023-03-03 12:39] LABS: Urine Cotinine NEGATIVE
== END 2023-03-03 11:23 | disposition home or self-care (01) ==
LOC: ANHSURGERY 11:25
PROVIDERS: Anesthesiology; PCP Family Medicine; Visit Provider Orthopaedic Surgery
DX: M17.11 Unilateral primary osteoarthritis, right knee (principal); I10 Essential (primary) hypertension
CPT/HCPCS: 80048; 80307; 82040; 85025; 85055; 86850; 86900; 86901; 87081

== ENCOUNTER 2023-04-03 15:16 | Outpatient (CLI) | payer MEDICARE, OTHER, SELFPAY ==
[2023-04-03 15:39] LABS: Basophils Percent Auto 0.5 % (0.2-1.2); Eosinophils Absolute Auto 0.3 K/mm3 (0-0.3); Eosinophils Percent Auto 4.2 % (0-4.4); Hematocrit 40.2 % (42.0-52.0); Immature Granulocyte Absolute 0.03 K/mm3 (0.00-0.031); Immature Granulocyte Percent A 0.5 % (0-0.5); Lymphocytes Absolute Auto 1.95 K/mm3 (0.9-3.2); Mean Corpuscular HGB Conc 34.8 g/dl (32-36); Mean Corpuscular Hemoglobin 35.7 pg (26-34); Mean Corpuscular Volume 102.6 fl (80-100); Mean Platelet Volume 10.1 fl (7.4-10.4); Monocytes Absolute Auto 0.4 K/mm3 (0.1-0.6); Monocytes Percent Auto 7.4 % (2.6-8.5); Neutrophils Absolute Auto 3.2 K/mm3 (1.3-6.7); Neutrophils Percent Auto 54.4 % (45.5-73.1); Platelet Count Result 86 k/mm3 (150-375); Red Blood Count 3.92 M/mm3 (4.6-6.20); Red Cell Distribution Width 12.7 % (11.5-14.5); White Blood Count 5.9 K/mm3 (4.5-10.0)
[2023-04-03 16:21] LABS: Iron 135 ug/dL (49-181)
[2023-04-03 16:23] LABS: Alanine Aminotransferase 26 U/L (6-50); Albumin Level 4.6 g/dL (3.5-5.1); Alkaline Phosphatase 74 U/L (38-126); Anion Gap 6 mmol/L (8-16); Aspartate Amino Transferase 35 U/L (17-59); Bilirubin,Total 1.2 mg/dL (0.2-1.3); Blood Urea Nitrogen 37 mg/dL (9-20); Calcium 9.9 mg/dL (8.4-10.2); Carbon Dioxide 30 mmol/L (22-30); Chloride 103 mmol/L (98-107); Estimated Glomerular Filt Rate 57; Glucose 100 mg/dL (65-110); Lactate Dehydrogenase 261 U/L (120-246); Potassium 4.1 mmol/L (3.4-5.0); Sodium 139 mmol/L (137-145)
[2023-04-03 16:30] LABS: Percent Iron Saturation 45 % (20-50)
[2023-04-03 17:31] LABS: Folic Acid > 20.0 ng/mL (2.76->20)
[2023-04-08 22:51] LABS: Platelet Antibody, Direct NEGATIVE (NEGATIVE)
== END 2023-04-03 15:17 | disposition home or self-care (01) ==
LOC: ANHLAB 15:18
PROVIDERS: PCP Family Medicine; Visit Provider Internal Medicine Hematology & Oncology
DX: C85.90 Non-Hodgkin lymphoma, unspecified, unspecified site (principal); D64.9 Anemia, unspecified; D69.59 Other secondary thrombocytopenia
CPT/HCPCS: 36415; 80053; 82607; 82728; 82746; 83540; 83550; 83615; 85025; 86023

== ENCOUNTER 2023-04-10 09:02 | Outpatient (CLI) | payer MEDICARE, OTHER, SELFPAY ==
--- NOTE | ~2023-04-10 | CT_ITS ---
CT of the Abdomen and Pelvis: Indication: Non-Hodgkin's lymphoma Technique: 2.5 mm axial scans were obtained through the abdomen and pelvis following intravenous adm inistration of 100 cc of Omnipaque 350. Dose reduction technique was used on this scan by utilizing a utomated exposure control and iterative reconstruction technique. The dose-length product (DLP) was 9 36.83 mGy-cm. Findings: Scans through the lung bases demonstrate probable linear scarring or chronic atelectasis a t the right lung base. The liver, spleen, pancreas, gallbladder, adrenals and right kidney are within normal limits. Nonobst ructing left renal stones are present, measuring up to 6 mm. There are atherosclerotic calcifications of the aorta. No lymphadenopathy. No bowel obstruction or bowel wall thickening. There is no evidence to suggest acute appendicitis. Images through the pelvis are degraded by streak artifact from bilateral hip arthroplasty. Urinary bl adder grossly unremarkable. No pelvic mass evident. No ascites seen. No ascites. Impression: No lymphadenopathy is seen. No evidence for active lymphoma or metastatic disease. Left nephrolithiasis. Probable chronic scarring or atelectasis right lung base. Pneumonia less likely. Correlate clinically . Reviewed, dictated and finalized at [facility]. Impression: No lymphadenopathy is seen. No evidence for active lymphoma or metastatic disea se. Left nephrolithiasis. Probable chronic scarring or atelectasis right lung base. Pneumonia less likely . Correlate clinically.
== END 2023-04-10 09:03 | disposition home or self-care (01) ==
LOC: ANHIMG 09:04
PROVIDERS: PCP Family Medicine; Visit Provider Internal Medicine Hematology & Oncology
DX: C85.90 Non-Hodgkin lymphoma, unspecified, unspecified site (principal); N20.0 Calculus of kidney
CPT/HCPCS: 74177; Q9967

== ENCOUNTER 2023-06-01 08:08 | Outpatient (CLI) | payer MEDICARE, OTHER, SELFPAY ==
[2023-06-01 10:18] LABS: Basophils Percent Auto 0.5 % (0.2-1.2); Eosinophils Absolute Auto 0.2 K/mm3 (0-0.3); Eosinophils Percent Auto 5.8 % (0-4.4); Hematocrit 38.8 % (42.0-52.0); Hemoglobin 12.9 g/dL (14.0-18.0); Immature Granulocyte Absolute 0.01 K/mm3 (0.00-0.031); Immature Granulocyte Percent A 0.2 % (0-0.5); Immature Platelet Fraction Pct 2.9 % (0.9-11.2); Lymphocytes Absolute Auto 1.47 K/mm3 (0.9-3.2); Lymphocytes Percent Auto 35.6 % (18.3-44.2); Mean Corpuscular HGB Conc 33.2 g/dl (32-36); Mean Corpuscular Hemoglobin 35.1 pg (26-34); Mean Corpuscular Volume 105.7 fl (80-100); Mean Platelet Volume 10.3 fl (7.4-10.4); Monocytes Absolute Auto 0.4 K/mm3 (0.1-0.6); Monocytes Percent Auto 9.4 % (2.6-8.5); Neutrophils Percent Auto 48.5 % (45.5-73.1); Platelet Count Result 69 k/mm3 (150-375); Red Blood Count 3.67 M/mm3 (4.6-6.20); Red Cell Distribution Width 13.2 % (11.5-14.5); White Blood Count 4.1 K/mm3 (4.5-10.0)
[2023-06-01 10:21] LABS: Albumin Level 3.9 g/dL (3.5-5.1)
[2023-06-01 10:26] LABS: Anion Gap 3 mmol/L (8-16); Blood Urea Nitrogen 28 mg/dL (9-20); Calcium 9.7 mg/dL (8.4-10.2); Carbon Dioxide 30 mmol/L (22-30); Chloride 108 mmol/L (98-107); Estimated Glomerular Filt Rate > 60; Glucose 95 mg/dL (65-110); Potassium 4.2 mmol/L (3.4-5.0); Sodium 141 mmol/L (137-145)
[2023-06-01 10:28] LABS: Urine Cotinine NEGATIVE
[2023-06-01 10:49] LABS: Hemoglobin A1C 4.9 % (<5.7)
== END 2023-06-01 08:09 | disposition home or self-care (01) ==
LOC: ANHSURGERY 08:15
PROVIDERS: Anesthesiology; PCP Family Medicine; Visit Provider Orthopaedic Surgery
DX: M17.11 Unilateral primary osteoarthritis, right knee (principal); Z79.899 Other long term (current) drug therapy; Z01.818 Encounter for other preprocedural examination
CPT/HCPCS: 36415; 80048; 80053; 80307; 82040; 83036; 85025; 85055; 86850; 86900; 86901; 87081

== ENCOUNTER 2023-06-01 09:11 | Outpatient (CLI) | payer MEDICARE, OTHER, SELFPAY ==
[2023-06-01 10:29] LABS: Alanine Aminotransferase 24 U/L (6-50); Alkaline Phosphatase 56 U/L (38-126); Anion Gap 6 mmol/L (8-16); Aspartate Amino Transferase 32 U/L (17-59); Bilirubin,Total 1.3 mg/dL (0.2-1.3); Blood Urea Nitrogen 29 mg/dL (9-20); Calcium 9.8 mg/dL (8.4-10.2); Carbon Dioxide 29 mmol/L (22-30); Chloride 107 mmol/L (98-107); Estimated Glomerular Filt Rate > 60; Glucose 95 mg/dL (65-110); Potassium 4.2 mmol/L (3.4-5.0); Sodium 142 mmol/L (137-145)
== END 2023-06-01 09:12 | disposition home or self-care (01) ==
PROVIDERS: PCP Family Medicine; Visit Provider Internal Medicine Hematology & Oncology
DX: D64.9 Anemia, unspecified (principal); D69.6 Thrombocytopenia, unspecified
CPT/HCPCS: 36415; 80053

== ENCOUNTER 2023-06-04 07:56 | Outpatient (RCR) | payer MEDICARE, OTHER, SELFPAY ==
[2023-06-04 08:40] LABS: Immature Platelet Fraction Pct 2.8 % (0.9-11.2); Mean Platelet Volume 9.8 fl (7.4-10.4); Platelet Count Result 71 k/mm3 (150-375)
[2023-06-04] MEDS: SODIUM CHLORIDE 0.9% IV 250 ML 30 ML IV CONT (09:46)
[2023-06-04] MEDS: ACETAMINOPHEN 325 MG TABLET PO (09:48)
[2023-06-04] MEDS: diphenhydrAMINE HCl CAP 25 MG CAPSULE PO (09:48)
[2023-06-04 10:19] VITALS: BP 151/65; PULSE 56; RESP 16; TEMP 36.5; O2SAT 98
[2023-06-04 10:34] VITALS: BP 149/61; PULSE 51; RESP 16; TEMP 36.3; O2SAT 98
[2023-06-04 11:10] VITALS: BP 148/60; PULSE 53; RESP 16; TEMP 36.5; O2SAT 99
[2023-06-04 11:23] VITALS: BP 148/60; PULSE 53; RESP 16; TEMP 36.5; O2SAT 99
[2023-06-04 11:38] VITALS: BP 158/66; PULSE 51; RESP 16; TEMP 36.3; O2SAT 99
[2023-06-04 12:08] VITALS: BP 170/69; PULSE 51; RESP 16; TEMP 36.3; O2SAT 100
== END 2023-09-02 23:59 | disposition home or self-care (01) ==
LOC: ANHCPCTRAN 07:56
PROVIDERS: PCP Family Medicine; Visit Provider Internal Medicine Hematology & Oncology
DX: D64.9 Anemia, unspecified (principal)
CPT/HCPCS: 36415; 36430; 85049; 85055; 86850; 86900; 86901; A9270; J7050; P9034

== ENCOUNTER 2023-06-09 16:46 | Day surgery (SDC) | payer MEDICARE, OTHER, SELFPAY ==
--- NOTE | 2022-12-24 13:02 | PC.NURSE ---
Report to the Outpatient Waiting Room, entrance under the green pavilion located off [facility], at time 1000 on date _01/05/23 . Planned Procedure Time: _1200 . Time changes happen often and if your time is changed the preop area will call you the afternoon before. - You and your visitor will be asked to self-screen and do not enter if you have any COVID symptoms. - A mask is optional within the hospital at this time. Patients may have clear liquids (water, carbonated beverages, clear teas, apple juice) until 3 hours prior to surgery with a maximum of 20 ounces. - No food from midnight until time of surgery - Infants may have breast milk until 4 hours before surgery, infant formula 6 hours prior to surgery. - Children will be allowed to drink immediately following surgery. If applicable, please bring a bottle or sippy cup to assist with drinking. Juice, water, soda, and popsicles are readily available. For infants on formula, please bring formula the day of surgery. Pacifiers are allowed. Take the following medications with a SIP of water the morning of surgery: _NEBIVOLOL, DO NOT STOP ANY OF YOUR OTHER PRESCRIPTION MEDICATIONS PRIOR TO SURGERY ?EXCEPT THE FOLLOWING Medications to discontinue per physician ____ASPIRIN 7 DAYS PRE OP PER DONG LAST DOSE12/28/22. ALL VITAMINS/SUPP 3 DAYS PRE OP.LAST DOSE 01/01/23 Please no make-up, nail lithuanian, hairspray, perfume, deodorant, or body powder the day of surgery. No jewelry (including any body piercings) or valuables the day of surgery, leave them at home. Please take a shower or bath the night before, or the morning of, surgery with an antibacterial soap. Wear comfortable, loose fitting clothing. Children are encouraged to wear pajamas. - Jewelry must be removed prior to entering the operating room. Rings and piercings that are not removed may be cut off. - The hospital will not accept responsibility for valuables. - Please leave all valuables, including medications, at home the day of surgery. If you are going home after surgery, a licensed dedicated truck driver must drive you home. - NO public transportation without another adult if you receive anesthesia. - We recommend that an adult stay with you for 24 hours following discharge. - We also recommend that you do not drive, make important decision, drink alcoholic beverages, or take any drugs that were not prescribed by your health care provider for at least 24 hours after your discharge time. For Pediatric surgeries, we recommend two adults accompany the child home. Follow any additional instructions given to you from your surgeon. If you or anyone in your household have experienced Covid symptoms in the past week, please notify your surgeon or the nurse liaison at the phone number below for possible testing. Telephone instructions given to __PT'S MARTIN and asked if any additional questions and then verbalized understanding. Patient advised to call surgeon office or pre surgery nurse liaison [phone] if any additional questions.
[2022-12-24 13:26] VITALS: BMI 28.8
--- NOTE | 2023-02-26 08:38 | PC.NURSE ---
Report to the Outpatient Waiting Room, entrance under the green pavilion located off [facility], at time __1000 on date __03/09/23 . Planned Procedure Time: _1200 . Time changes happen often and if your time is changed the preop area will call you the afternoon before. - You and your visitor will be asked to self-screen and do not enter if you have any COVID symptoms. - A mask is optional within the hospital at this time. Patients may have clear liquids (water, carbonated beverages, clear teas, apple juice) until 3 hours prior to surgery with a maximum of 20 ounces. - No food from midnight until time of surgery - Infants may have breast milk until 4 hours before surgery, infant formula 6 hours prior to surgery. - Children will be allowed to drink immediately following surgery. If applicable, please bring a bottle or sippy cup to assist with drinking. Juice, water, soda, and popsicles are readily available. For infants on formula, please bring formula the day of surgery. Pacifiers are allowed. Take the following medications with a SIP of water the morning of surgery: __NEBIVOLOL DO NOT STOP ANY OF YOUR OTHER PRESCRIPTION MEDICATIONS PRIOR TO SURGERY ?EXCEPT THE FOLLOWING Medications to discontinue per physician __ASPIRIN HOLD 7 DAYS PRE OP PER DR UMANA.LAST DOSE 03/01/23 HOLD ALL VITAMINS AND SUPPLEMENTS 3 DAYS PRE OP.LAST DOSE 03/05/23 Please no make-up, nail icelandic, hairspray, perfume, deodorant, or body powder the day of surgery. No jewelry (including any body piercings) or valuables the day of surgery, leave them at home. Please take a shower or bath the night before, or the morning of, surgery with an antibacterial soap. Wear comfortable, loose fitting clothing. Children are encouraged to wear pajamas. - Jewelry must be removed prior to entering the operating room. Rings and piercings that are not removed may be cut off. - The hospital will not accept responsibility for valuables. - Please leave all valuables, including medications, at home the day of surgery. If you are going home after surgery, a licensed inventory associate and driver must drive you home. - NO public transportation without another adult if you receive anesthesia. - We recommend that an adult stay with you for 24 hours following discharge. - We also recommend that you do not drive, make important decision, drink alcoholic beverages, or take any drugs that were not prescribed by your health care provider for at least 24 hours after your discharge time. For Pediatric surgeries, we recommend two adults accompany the child home. Follow any additional instructions given to you from your surgeon. If you or anyone in your household have experienced Covid symptoms in the past week, please notify your surgeon or the nurse liaison at the phone number below for possible testing. Telephone instructions given to __PT'S MARTIN and asked if any additional questions and then verbalized understanding. Patient advised to call surgeon office or pre surgery nurse liaison [phone] if any additional questions.
[2023-02-26 08:44] VITALS: BMI 28.8
--- NOTE | 2023-06-01 07:48 | PC.NURSE ---
PRE-OP INSTRUCTIONS, PLEASE READ CAREFULLY Report to the Outpatient Waiting Room, entrance under the green pavilion located off [facility], at time _0830_ on date _06/09/23_. Planned Procedure Time: _1030_. PACK A SMALL OVERNIGHT BAG AND LEAVE IN THE CAR ALONG WITH YOUR WALKER Time changes happen often and if your time is changed the preop area will call you the afternoon before. - You and your visitor will be asked to self-screen and do not enter if you have any COVID symptoms. - A mask is optional within the hospital at this time. -VISITING HOURS 8AM-8PM Patients may have clear liquids (water, carbonated beverages, clear teas, apple juice) until 3 hours prior to surgery (0730 AM) with a maximum of 20 ounces. - No food from midnight until time of surgery Take the following medications with a SIP of water the morning of surgery: _NEBIVOLOL (BYSTOLIC)_ DO NOT STOP ANY OF YOUR OTHER PRESCRIPTION MEDICATIONS PRIOR TO SURGERY ?EXCEPT THE FOLLOWING Medications to discontinue per DR. UMANA - _ASPIRIN 7 DAYS PRIOR TO SURGERY, Date to take last dose 06/01/23_ Medications to discontinue per ANESTHESIA -_VITAMINS & SUPPLEMENTS 3 DAYS PRIOR TO SURGERY, Date to take last dose 06/05/23_ Please no make-up, nail bengali, hairspray, perfume, deodorant, or body powder the day of surgery. No jewelry (including any body piercings) or valuables the day of surgery, leave them at home. Please take a shower or bath the night before, or the morning of, surgery with an antibacterial soap. Wear comfortable, loose fitting clothing. - Jewelry must be removed prior to entering the operating room. Rings and piercings that are not removed may be cut off. - The hospital will not accept responsibility for valuables. - Please leave all valuables, including medications, at home the day of surgery. If you are going home after surgery, a licensed driver's license reviewing officer must drive you home. - NO public transportation without another adult if you receive anesthesia. - We recommend that an adult stay with you for 24 hours following discharge. - We also recommend that you do not drive, make important decision, drink alcoholic beverages, or take any drugs that were not prescribed by your health care provider for at least 24 hours after your discharge time. Follow any additional instructions given to you from your surgeon. If you or anyone in your household have experienced Covid symptoms in the past week, please notify your surgeon or the nurse liaison at the phone number below for possible testing. Instructions given to _PATIENT & SPOUSE_and asked if any additional questions and then verbalized understanding. Patient advised to call surgeon office or pre surgery nurse liaison [phone] if any additional questions.
[2023-06-01 08:27] VITALS: BP 158/68; PULSE 58; RESP 20; TEMP 37.1; O2SAT 97; BMI 31.5
[2023-06-09] VITALS (22 sets, daily range): BP systolic 120–162; BP diastolic 62–99; PULSE 51–82; RESP 11–22; TEMP 36.1–37.1; O2SAT 92–100
--- NOTE | ~2023-06-09 | XR_ITS ---
Right Knee Technique: Portable AP and crosstable lateral views Clinical History: Status post TKR Findings: Patient is status post total knee replacement. Orthopedic hardware alignment appears anatom ic. No hardware complication is evident. Subcutaneous emphysema and swelling is likely postoperative in nature. No acute osseous fracture is seen. Impression: Status post total knee replacement, without evidence of hardware complication. Reviewed, dictated and finalized at location . [employer] Impression: Status post total knee replacement, without evidence of hardware complication.
[2023-06-09 09:14] LABS: Mean Platelet Volume 11.2 fl (7.4-10.4); Platelet Count Result 119 k/mm3 (150-375)
[2023-06-09] MEDS: ACETAMINOPHEN 500 MG TABLET 1000 MG PO ×3 (09:25→21:53)
[2023-06-09] MEDS: LACTATED RINGERS 1,000 ML 30 ML IV CONT ×2 (09:25→12:37)
[2023-06-09] MEDS: TRANEXAMIC ACID 1,000MG/ISO100 1,000 MG/100 ML BAG 200 MG IVPB (09:25)
--- NOTE | 2023-06-09 09:43 | WPDHPUPDATE1 ---
History and Physical Update Update Date/Time: 06/09/23 09:43 History and Physical has been reviewed, including an updated exam of the patient. There are NO changes in the patient's condition. Risks, benefits, and alternatives have been discussed and questions answered. Patient agrees to proceed with procedure.
--- NOTE | 2023-06-09 09:54 | WPDANESEPPF ---
Anes - Initial Pre Proc Eval Procedure: Operation Date: 06/09/23 10:30 Proposed Procedures p Right Total Knee Arthroplasty - Augusto Lowe MD Date/Time: 06/09/23 09:54 Surgeon: Augusto Lowe MD Pre Op Diagnosis: Primary oa right knee Patient Data Age: 88 Gender: M Height: 1.73 m Weight: 94.1 kg Last Vital Signs Temp 98.7 F 06/01/23 08:27 Pulse 58 L 06/01/23 08:27 Resp 20 06/01/23 08:27 BP 158/68 H 06/01/23 08:27 Pulse Ox 97 06/01/23 08:27 O2 Del Method Room Air 06/01/23 08:27 Allergies Allergy/AdvReac Type Severity Reaction Status Date / Time iron Allergy Unknown unknown- Verified 06/04/23 08:41 A CHILD Home Medications Medication Instructions Recorded Confirmed Type valsartan 160 0.5 tablet PO DAILY #45 tabs 07/30/20 06/01/23 Rx mg-hydrochlorothiazide 25 mg tablet (Diovan HCT) aspirin 81 mg tablet,delayed 81 mg PO DAILY 02/04/22 06/01/23 History release (Adult Low Dose Aspirin) ascorbate calcium (vitamin C) 500 500 mg PO DAILY 04/23/22 06/01/23 History mg tablet cholecalciferol (vitamin D3) 50 50 mcg PO DAILY 04/23/22 06/01/23 History mcg (2,000 unit) capsule vitamin E 600 unit capsule 600 unit PO DAILY 04/23/22 06/01/23 History finasteride 5 mg tablet 5 mg PO DAILY 09/08/22 06/01/23 History glucosamine 750 ml-rreibqgmzzo-nzy 1 tablet PO DAILY 09/08/22 06/01/23 History no1 644 mg-C 30 mg-ruddy 1 mg tablet (Osteo Bi-Flex Triple Strength) mirabegron 25 mg tablet,extended 25 mg PO DAILY 09/08/22 06/01/23 History release 24 hr (Myrbetriq) perindopril erbumine 4 mg tablet 4 mg PO DAILY #90 tabs 09/08/22 06/01/23 Rx oxycodone-acetaminophen 5 mg-325 1 - 2 tablet PO Q4-6H PRN pain #30 10/01/22 06/01/23 Rx mg tablet tabs nebivolol 10 mg tablet See Rx Instructions .Route 01/28/23 06/01/23 Rx .COMPLEX #90 tabs lovastatin 40 mg tablet See Rx Instructions .Route 02/12/23 06/01/23 Rx .COMPLEX #90 tabs allopurinol 300 mg tablet See Rx Instructions .Route 02/26/23 06/01/23 Rx .COMPLEX #90 tabs niacin 1,000 mg tablet,extended See Rx Instructions .Route 02/26/23 06/01/23 Rx release 24 hr .COMPLEX #90 tabs pantoprazole 40 mg tablet,delayed See Rx Instructions .Route 02/26/23 06/01/23 Rx release .COMPLEX #90 tabs celecoxib 200 mg capsule See Rx Instructions .Route 05/22/23 06/01/23 Rx .COMPLEX #90 caps omega-3 acid ethyl esters 1 gram See Rx Instructions .Route 05/22/23 06/01/23 Rx capsule .COMPLEX #360 caps multivitamin 1 tablet PO DAILY 06/01/23 06/01/23 History aspirin 81 mg tablet,delayed 81 mg PO BID 14 days #28 tabs 06/09/23 Rx release oxycodone-acetaminophen 5 mg-325 1 - 2 tablet PO Q4-6H PRN pain #30 06/09/23 Rx mg tablet tabs prednisone 5 mg tablet 5 mg PO DAILY 3 weeks #21 tabs 06/09/23 Rx Laboratory Tests 06/09/23 09:08 Plt Count 119 L D k/mm3 (150-375) MPV 11.2 H fl (7.4-10.4) Patient hx anesthesia problems: none Family hx anesthesia problems: none Results Review: All pre-operative results and documents have been reviewed as part of the pre-operative evaluation. 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
--- NOTE | 2023-06-09 10:27 | WPDANESPNB ---
Anes - Peripheral Nerve Block Date/Time: 06/09/23 10:27 I have discussed with the patient/family/POA the placement of a peripheral nerve block for post-operative pain management, including associated risks, benefits, complications, and side effects. Alternative methods of post-operative analgesia were detailed. Questions were solicited and answers provided to the satisfaction of the patient/family/POA. Time-Out: A pre-procedural Time-Out was completed immediately before starting the procedure and confirmed: Patient Identification, Site, Procedure, Patient Position and the Availability of Requisite Equipment. Clinical Indications: Acute post-operative pain management requested by the operative surgeon. Nerve Block Insertion Note Anes-nerve block: adductor canal right Patient position: supine Skin prep: chlorhexidine Needle: 22 gauge, stimulating, insulated echogenic needle. Needle length: 80 mm Technique: ultrasound Technique comment: mid 1mg fent 50mcg Injectate: bupivacaine 0.5% with epi 5 mcg/ml (30ml no epi) and dexamethasone (mg) (4) Observations: tolerated well Complications: none Procedure start time:: 1017 Procedure end time:: 1024
[2023-06-09] MEDS: ceFAZolin 2 GM/D5W 50 ML 2 GM/50 ML BAG IVPB ×2 (10:28→18:21)
[2023-06-09] MEDS: GENTAMICIN BONE CEMENT REFOBACIN 1 EACH TOPICAL (11:12)
--- NOTE | 2023-06-09 13:54 | P.OP_ITS ---
Procedure Note - Detailed Date of Procedure 06/09/23 Pre-op Diagnosis Primary oa right knee Post-op Diagnosis Same Procedure Performed Total knee arthroplasty, right. Surgeon Augusto Lowe MD [facility] Emily Hines PA-C Anesthesia General and Regional (subsartorial block) Findings Mild medial and PCL release. Satisfactory bone quality. Description of Procedure The patient was brought to the operating room. A general anesthetic was administered. The leg was prepped and draped in the usual sterile fashion. The limb was elevated and the tourniquet inflated to 300 mmHg during initial exposure, and cementation. A longitudinal incision was created along the medial border of the patella and patellar tendon, and a trivector approach to the knee was performed. A mild medial release was taken. The knee was then flexed. The osteophytes were carefully removed. The intramedullary guide was placed in the femoral canal. The distal femoral resection was then taken with the oscillating saw. The collateral ligaments were carefully protected. The tibia was carefully exposed. The jig was applied, and the proximal tibia was resected according to preoperative plan. The knee was balanced in extension. Appropriate releases were taken where needed. The anterior cruciate ligament and meniscal remnants were removed. The posterior cruciate ligament was preserved. The patella was measured. Patellar resection was carried out with the oscillating saw. The lug holes drilled. The femur was sized and rotation assessed using a combination of gap balancing, posterior referencing, and the AP axis. The 4 in 1 cutting block was used to finish the femoral cuts after equal gaps were assured. The osteophytes were carefully removed from the back of the knee. The knee was copiously irrigated with antibiotic solution periodically throughout the procedure. The meniscal remnants were removed. The spacer block was used to confirm equal flexion and extension gaps. Slight PCL release from tibia. The tibia was sized and broached. The bony surfaces were prepared for cementing with pulsatile lavage. The real tibial and femoral and patellar components were cemented into position. Excess cement was carefully removed. Patellar tracking was carefully assessed. No additional releases were required. Dilute sterile Betadine soak performed for three minutes. Copious irrigation then performed. The wound was closed with #1 Vicryl suture, #1 Stratafix, 2-0, and 3-0 barbed suture, followed by Steri-Strips. A sterile bulky dressing was applied. Meticulous hemostasis was maintained throughout the procedure. The bipolar cautery device was used. The pain relieving mixture was injected into the periarticular tissues during the procedure. There were no complications. The patient was extubated and brought to the recovery room in stable condition after the application of sterile dressing with Jose bandage. [employer] Triathlon knee system, low profile cemented tibia size 6, cemented cruciate retaining femoral component size 5 ,and an 10 mm cruciate retaining polyethylene insert. 38 mm asymmetric all polyethylene patella component. Estimated Blood Loss -75.0 Drains No Pathology None sent Complications No immediate complications Condition Stable Disposition PACU [facility] Billing Surgery - Charge Forward: Surgery Billing
[2023-06-09] MEDS: allopurinoL 300 MG TABLET PO (17:31)
[2023-06-09] MEDS: LOVASTATIN 20 MG TABLET 40 MG PO (17:32)
[2023-06-09] MEDS: PANTOPRAZOLE 40 MG TABLET PO (17:32)
[2023-06-09] MEDS: CELECOXIB 200 MG CAPSULE PO (17:32)
[2023-06-09] MEDS: SENNA/DOCUSATE SODIUM TABLET 2 TAB PO (17:33)
[2023-06-09] MEDS: NIACIN SA 500 MG TABLET 1000 MG PO (20:23)
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
[2023-06-10 02:26] VITALS: BP 115/66; PULSE 77; RESP 18; TEMP 36.7; O2SAT 97
[2023-06-10] MEDS: ceFAZolin 2 GM/D5W 50 ML 2 GM/50 ML BAG IVPB ×2 (02:26→10:14)
[2023-06-10] MEDS: ACETAMINOPHEN 500 MG TABLET 1000 MG PO ×2 (04:36→10:15)
[2023-06-10 06:25] VITALS: BP 152/65; PULSE 64; RESP 18; TEMP 36.5; O2SAT 95
[2023-06-10 06:26] LABS: Basophils Percent Auto 0.3 % (0.2-1.2); Eosinophils Percent Auto 0.1 % (0-4.4); Hematocrit 33.8 % (42.0-52.0); Hemoglobin 11.6 g/dL (14.0-18.0); Immature Granulocyte Absolute 0.05 K/mm3 (0.00-0.031); Immature Granulocyte Percent A 0.5 % (0-0.5); Immature Platelet Fraction Pct 2.9 % (0.9-11.2); Lymphocytes Absolute Auto 1.51 K/mm3 (0.9-3.2); Lymphocytes Percent Auto 13.8 % (18.3-44.2); Mean Corpuscular HGB Conc 34.3 g/dl (32-36); Mean Corpuscular Hemoglobin 35.8 pg (26-34); Mean Corpuscular Volume 104.3 fl (80-100); Mean Platelet Volume 10.3 fl (7.4-10.4); Monocytes Absolute Auto 0.6 K/mm3 (0.1-0.6); Monocytes Percent Auto 5.5 % (2.6-8.5); Neutrophils Absolute Auto 8.8 K/mm3 (1.3-6.7); Neutrophils Percent Auto 79.8 % (45.5-73.1); Platelet Count Result 96 k/mm3 (150-375); Red Blood Count 3.24 M/mm3 (4.6-6.20); Red Cell Distribution Width 12.6 % (11.5-14.5)
[2023-06-10 06:35] LABS: Anion Gap 6 mmol/L (8-16); Blood Urea Nitrogen 34 mg/dL (9-20); Calcium 9.2 mg/dL (8.4-10.2); Carbon Dioxide 26 mmol/L (22-30); Chloride 105 mmol/L (98-107); Estimated CRCL calculation 39 ml/min; Estimated Glomerular Filt Rate 52; Glucose 112 mg/dL (65-110); Potassium 4.1 mmol/L (3.4-5.0); Sodium 137 mmol/L (137-145)
--- NOTE | 2023-06-10 08:21 | PM.DS ---
DS: Admitting Diagnosis Discharge Date 06/10/23 Admitting Diagnosis OA knee Right DS: Discharge Diagnosis Discharge Diagnosis (1) Status post total right knee replacement: Code(s): Z96.651 - Presence of right artificial knee joint Status: Acute Assessment and Plan: Postop day 1: Right total knee arthroplasty. Patient tolerated procedure well. No complications. Platelets low but higher than his baseline levels. He had a transfusion prior to surgery. He sees a health nurse. Pain manageable with pain medication. No numbness or tingling. The hospitalist ordered a lead level. Will discuss this with the patient at his next visit. We had a lengthy discussion regarding postoperative wound care, limitations, expectations, and exercises. Patient shows good understanding. He has had initial physical therapy and is tolerating it well. DVT prophylaxis: 81 mg baby aspirin b.i.d. for 14 days. Pain medication: Percocet. Prednisone. Continue Celebrex. Continue all other home medications. Patient has followup appointment with Dr. Lowe in 3 weeks. DS: Summary Hospital Course Reason for hospitalization: Total knee arthroplasty Hospital Course: Patient tolerated procedure well. Has had initial PT/OT. No complications. Pain well managed. Status at Discharge Functional status at discharge: uses cane/walker Overall status at discharge: patient is progressing back to baseline Time Spent with Patient Time attestation: Total time spent providing and/or coordinating discharge services: Exam Narrative: Overweight 88 y/o Male. Resting comfortably in chair. No acute distress. A&O x3. Wearing compression socks bilaterally. Dressing intact with no drainage. Moderate swelling. Small area of ecchymosis medially. No erythema. No hematoma. Good early range of motion. Calf nontender. Neurologic status intact. No varicosities. Distal pulses palpable. DS: Data Data Completed and Pending Labs on day of discharge: Labs from last 24 hours 06/10/23 06/09/23 05:58 09:08 WBC 11.0 H RBC 3.24 L Hgb 11.6 L Hct 33.8 L MCV 104.3 H MCH 35.8 H MCHC 34.3 RDW 12.6 Plt Count 96 L 119 L D MPV 10.3 11.2 H Immature Gran % (Auto) 0.5 Neut % (Auto) 79.8 H Lymph % (Auto) 13.8 L [place] % (Auto) 5.5 Eos % (Auto) 0.1 Baso % (Auto) 0.3 Lymph # (Auto) 1.51 [place] # (Auto) 0.6 Eos # (Auto) 0.0 Baso # (Auto) 0.0 Abs Immat Gran (auto) 0.05 H Absolute Neuts (auto) 8.8 H Absolute Nucleated RBC 0.0 Nucleated RBC % 0.0 % Immature Plt Fraction 2.9 Sodium 137 Potassium 4.1 Chloride 105 Carbon Dioxide 26 Anion Gap 6 L BUN 34 H Creatinine 1.30 Estim Creat Clear Calc 39 Estimated GFR 52 L Glucose 112 H Calcium 9.2 Lead Sample Type Pending Whole Blood Lead Pending Discharge Plan Discharge Patient Disposition: Home, Self-Care Discharge Instructions: See green instructions sheets Stand Alone Forms: General Discharge Instructions Follow-up/Referrals: Emily Hines PA [Physician Patient Support Partner] - Discharge Medications: New prednisone 5 mg tablet 5 mg PO DAILY 21 Days Qty: 21 0RF aspirin 81 mg tablet,delayed release (DR/EC) 81 mg PO BID 14 Days Qty: 28 0RF oxycodone-acetaminophen 5-325 mg tablet 1 - 2 tablet PO Q4-6H MDD 6 PRN (Reason: pain) Qty: 30 0RF Continued aspirin [Adult Low Dose Aspirin] 81 mg tablet,delayed release (DR/EC) 81 mg PO DAILY ascorbate calcium (vitamin C) 500 mg tablet 500 mg PO DAILY cholecalciferol (vitamin D3) 50 mcg (2,000 unit) capsule 50 mcg PO DAILY vitamin E 600 unit capsule 600 unit PO DAILY multivitamin Tablet 1 tablet PO DAILY finasteride 5 mg Tablet 5 mg PO DAILY Myrbetriq 25 mg Tablet Extended Release 24 Hr 25 mg PO DAILY Osteo Bi-Flex Triple Strength 750 mg-644 mg- 30 mg-1 mg Tablet 1 tablet PO DAILY oxyco
[2023-06-10 08:36] VITALS: PULSE 66
[2023-06-10] MEDS: FINASTERIDE 5 MG TABLET PO (08:36)
[2023-06-10] MEDS: ASPIRIN 81 MG ENTERIC TABLET PO (08:36)
[2023-06-10] MEDS: CHOLECALCIFEROL 1,000 UNITS TABLET 2000 UNITS PO (08:36)
[2023-06-10] MEDS: PANTOPRAZOLE 40 MG TABLET PO (08:36)
[2023-06-10] MEDS: ASCORBIC ACID 500 MG TABLET PO (08:36)
[2023-06-10] MEDS: NEBIVOLOL HCL 5 MG TABLET 10 MG PO (08:36)
[2023-06-10] MEDS: lisinopriL 10 MG TABLET PO (08:37)
[2023-06-10] MEDS: MIRABEGRON 25 MG ER TABLET PO (08:37)
[2023-06-10] MEDS: CELECOXIB 200 MG CAPSULE PO (08:37)
[2023-06-10] MEDS: hydroCHLOROthiazide 12.5 MG CAPSULE PO (08:37)
[2023-06-10] MEDS: allopurinoL 300 MG TABLET PO (08:37)
[2023-06-10] MEDS: SENNA/DOCUSATE SODIUM TABLET 2 TAB PO (08:37)
[2023-06-10] MEDS: LOVASTATIN 20 MG TABLET 40 MG PO (08:37)
[2023-06-10] MEDS: predniSONE 5 MG TABLET PO (08:37)
[2023-06-10] MEDS: polyethylene glycoL 3350 17 GM POWD.PACK PO (08:38)
--- NOTE | 2023-06-10 08:55 | P.PNIM_ITS ---
Progress Note: A&P Assessment and Plan (1) Status post total right knee replacement: Code(s): Z96.651 - Presence of right artificial knee joint Status: Acute Assessment and Plan: S/P right total knee on 06/09, following with Ortho. * Ambulate with assistance and up to chair * cardiac monitoring Q4H * use IS * neurovasc checks - see order for intervals * SCDs and TEDS * resume diet * pain management * zofran PRN for nausea * monitor labs in AM - CBC and CMP * bowel regimen * PT/OT (2) Low platelet count: Code(s): D69.6 - Thrombocytopenia, unspecified Status: Acute Assessment and Plan: 06/09/23: * follows with heme/onc. given platelet transfusion prior to operation. reported retained lead buckshots above R eyebrow for years, present since teenager. will obtain lead level, low suspicion for toxicity given MCV currently 105.7. continue to monitor cbc. 06/10/23: * Platelet count 96 (3) Hypertension: Code(s): I10 - Essential (primary) hypertension Status: Acute Assessment and Plan: 06/09/23: * Chronic condition. Continue home valsartan-HCTZ, lisinopril, Bystolic, and aspirin. Continue to monitor. 06/10/23: * no change to current treatment plan (4) BPH (benign prostatic hyperplasia): Code(s): N40.0 - Benign prostatic hyperplasia without lower urinary tract symptoms Status: Acute Assessment and Plan: 06/09/23: * No reported difficulty urinating after operation. Continue finasteride and Myrbetriq. 06/10/23: * No change to current treatment plan (5) Gastro-esophageal reflux disease without esophagitis: Code(s): K21.9 - Gastro-esophageal reflux disease without esophagitis Status: Acute Assessment and Plan: 06/09/23: * Chronic condition. Continue home pantoprazole. 06/10/23: * no change to current treatment plan (6) Arthritis: Code(s): M19.90 - Unspecified osteoarthritis, unspecified site Status: Acute Assessment and Plan: 06/09/23: * chronic. continue home celecoxib. 06/10/23: * no change to current treatment plan (7) Mixed hyperlipidemia: Code(s): E78.2 - Mixed hyperlipidemia Status: Acute Assessment and Plan: 06/09/23: * chronic condition. continue home lovastatin. 06/10/23: * no change to current treatment plan Time Spent With Patient Time with patient: less than 15 minutes Subjective Date/time seen: 06/10/23 08:55 Interval history: This is an 88 year old male who presented for elective knee surgery on 06/09/23. He is currently post op day 1 from a right total knee replacement. We were consulted yesterday for medical management. Labs today reveal WBC 11.0. hgb 11.6, Hct 33.8, Plt 96, K+ 4.1, BUN 34, Creatinine 1.30. Patient was discharged before I could see him this morning. Review of Systems Review of Systems: unable to assess as the patient was discharged before seeing him this a.m. ROS unobtainable: Yes other Exam Narrative: Unable to assess as he was discharged before I seen him this morning. Objective Data Vital Signs Vital Signs: Vital Signs - 24 hr 06/09/23 09:25 06/09/23 12:37 06/09/23 12:50 Temperature 97.8 F 97 F L Pulse Rate 51 L 73 67
--- NOTE | 2023-06-10 08:55 | PM.IMPN ---
Progress Note: A&P Assessment and Plan (1) Status post total right knee replacement: Code(s): Z96.651 - Presence of right artificial knee joint Status: Acute Assessment and Plan: S/P right total knee on 06/09, following with Ortho. Ambulate with assistance and up to chair cardiac monitoring Q4H use IS neurovasc checks - see order for intervals SCDs and TEDS resume diet pain management zofran PRN for nausea monitor labs in AM - CBC and CMP bowel regimen PT/OT (2) Low platelet count: Code(s): D69.6 - Thrombocytopenia, unspecified Status: Acute Assessment and Plan: 06/09/23: follows with heme/onc. given platelet transfusion prior to operation. reported retained lead buckshots above R eyebrow for years, present since teenager. will obtain lead level, low suspicion for toxicity given MCV currently 105.7. continue to monitor cbc. 06/10/23: Platelet count 96 (3) Hypertension: Code(s): I10 - Essential (primary) hypertension Status: Acute Assessment and Plan: 06/09/23: Chronic condition. Continue home valsartan-HCTZ, lisinopril, Bystolic, and aspirin. Continue to monitor. 06/10/23: no change to current treatment plan (4) BPH (benign prostatic hyperplasia): Code(s): N40.0 - Benign prostatic hyperplasia without lower urinary tract symptoms Status: Acute Assessment and Plan: 06/09/23: No reported difficulty urinating after operation. Continue finasteride and Myrbetriq. 06/10/23: No change to current treatment plan (5) Gastro-esophageal reflux disease without esophagitis: Code(s): K21.9 - Gastro-esophageal reflux disease without esophagitis Status: Acute Assessment and Plan: 06/09/23: Chronic condition. Continue home pantoprazole. 06/10/23: no change to current treatment plan (6) Arthritis: Code(s): M19.90 - Unspecified osteoarthritis, unspecified site Status: Acute Assessment and Plan: 06/09/23: chronic. continue home celecoxib. 06/10/23: no change to current treatment plan (7) Mixed hyperlipidemia: Code(s): E78.2 - Mixed hyperlipidemia Status: Acute Assessment and Plan: 06/09/23: chronic condition. continue home lovastatin. 06/10/23: no change to current treatment plan Time Spent With Patient Time with patient: less than 15 minutes Subjective Date/time seen: 06/10/23 08:55 Interval history: This is an 88 year old male who presented for elective knee surgery on 06/09/23. He is currently post op day 1 from a right total knee replacement. We were consulted yesterday for medical management. Labs today reveal WBC 11.0. hgb 11.6, Hct 33.8, Plt 96, K+ 4.1, BUN 34, Creatinine 1.30. Patient was discharged before I could see him this morning. Review of Systems Review of Systems: unable to assess as the patient was discharged before seeing him this a.m. ROS unobtainable: Yes other Exam Narrative: Unable to assess as he was discharged before I seen him this morning. Objective Data Vital Signs Vital Signs: Vital Signs - 24 hr 06/09/23 09:25 06/09/23 12:37 06/09/23 12:50 Temperature 97.8 F 97 F L Pulse Rate 51 L 73 67 Respiratory Rate 14 12 16 Blood Pressure 162/66 H 120/66 133/67 Pulse Oximetry 97 100 100 Oxygen Delivery Room Air Simple Face Mask Simple Face Mask Oxygen Flow Rate 6 6 06/09/23 13:05 06/09/23 13:20 06/09/23 13:35 Temperature Pulse Rate 64 64 67 Respiratory Rate 12 12 15 Blood Pressure 131/66 132/69 140/75 Pulse Oximetry 92 100 97 Oxygen Delivery Room Air Nasal Cannula Nasal Cannula Oxygen Flow Rate 2 2 06/09/23 13:50 06/09/23 14:05 06/09/23 14:20 Temperature Pulse Rate 64 64 65 Respiratory Rate 11 L 12 17 Blood Pressure 138/73 137/68 140/72 Pulse Oximetry 98 100 99 Oxygen Delivery Nasal Cannula Room Air Room Air Oxygen Flow Rate 2 1
[2023-06-10] MEDS: VALSARTAN 80 MG TABLET PO (10:15)
[2023-06-12 12:33] LABS: Lead, Blood 1.3 mcg/dL (<3.5)
[2023-06-24 14:01] LABS: Collection Sample Venous
== END 2023-06-10 11:07 | disposition home or self-care (01) ==
LOC: ANHSURGERY 16:46 → ANH2MED 16:47
PROVIDERS: Physician Assistant Surgical; Student in an Organized Health Care Education/Training Program; PCP Family Medicine; Visit Provider Orthopaedic Surgery
PROC: (CPT 27447; principal; 2023-06-09 10:30)
DX: M17.11 Unilateral primary osteoarthritis, right knee (principal); G89.18 Other acute postprocedural pain; D69.6 Thrombocytopenia, unspecified; I25.810 Atherosclerosis of coronary artery bypass graft(s) without angina pectoris; N40.0 Benign prostatic hyperplasia without lower urinary tract symptoms; I11.9 Hypertensive heart disease without heart failure; K21.9 Gastro-esophageal reflux disease without esophagitis; M10.9 Gout, unspecified; E11.9 Type 2 diabetes mellitus without complications; E78.2 Mixed hyperlipidemia; Z85.72 Personal history of non-Hodgkin lymphomas; Z79.82 Long term (current) use of aspirin; I77.810 Thoracic aortic ectasia; Z87.891 Personal history of nicotine dependence; E66.9 Obesity, unspecified; Z68.30 Body mass index [BMI] 30.0-30.9, adult; Z77.011 Contact with and (suspected) exposure to lead; Z18.12 Retained nonmagnetic metal fragments
CPT/HCPCS: 27447; 64447; 36415; 73560; 80048; 83655; 85025; 85049; 85055; 97110; 97161; 97165; A9270; C1713; C1776; J0171; J0690; J1100; J1885; J2250; J2270; J2405; J2704; J2795; J3010; J7120; J7512

== ENCOUNTER 2023-07-01 10:39 | Outpatient (CLI) | payer MEDICARE, OTHER, SELFPAY ==
--- NOTE | ~2023-07-01 | XR_ITS ---
Right Knee Technique: AP, lateral, and sunrise views were obtained. Clinical History: Follow-up knee arthroplasty Findings: No fracture or dislocation is seen. Right knee arthroplasty in place. No hardware complicat ion. Soft tissues are unremarkable. No joint effusion is seen. Impression: No acute abnormality. Right knee arthroplasty. Reviewed, dictated and finalized at location . [facility] OFFICE ASSISTANT Impression: No acute abnormality. Right knee arthroplasty.
== END 2023-07-01 10:40 | disposition home or self-care (01) ==
PROVIDERS: PCP Family Medicine; Visit Provider Orthopaedic Surgery
DX: Z96.651 Presence of right artificial knee joint (principal)
CPT/HCPCS: 73562